=== PATIENT | male | born 1965 | race Caucasian/White ===

== ENCOUNTER → 2020-07-26 16:32 | Outpatient (CLI) | payer OTHER, SELFPAY ==
[2017-10-23 06:45] VITALS: BMI 39.8
[2020-07-26 18:43] LABS: Hemoglobin A1c 8.2 % (3.8-5.6)
[2020-07-26 19:00] LABS: Anion Gap 4 (5-15); BUN 9 mg/dL (7-18); BUN/Creat Ratio 10.7 RATIO (10-20); Calcium,Total 9.7 mg/dL (8.5-10.1); Chloride 103 mmol/L (98-107); Cholesterol 157 mg/dL (200); Creatinine, Serum 0.84 mg/dL (0.70-1.30); EST Glomerular Filtration Rate 100 mL/min (>60); Est Glom Filt Rate - Afr Amer 121 mL/min (>60); Glucose 119 mg/dL (74-106); High Density Lipoprotein 37 mg/dL; Potassium 3.9 mmol/L (3.5-5.1); Sodium Level 136 mmol/L (136-145); Triglycerides 75 mg/dL; Very Low Density Lipoprotein 15 mg/dL (5-40)
== END ==
PROVIDERS: PCP Family Medicine; Referring Provider Family Medicine; Visit Provider Family Medicine
DX: I10 Essential (primary) hypertension (principal); E11.9 Type 2 diabetes mellitus without complications
CPT/HCPCS: 36415; 80048; 80061; 83036

== ENCOUNTER → 2020-12-26 11:46 | Outpatient (CLI) | payer OTHER, SELFPAY ==
[2017-10-23 06:45] VITALS: BMI 39.8
[2020-12-26 15:38] LABS: International Normalized Ratio 1.1; Prothrombin Time (Protime)PT. 13.7 SECONDS (11.7-14.9)
[2020-12-26 16:00] LABS: Anion Gap 7 (5-15); BUN 13 mg/dL (7-18); BUN/Creat Ratio 17.1 RATIO (10-20); Calcium,Total 8.8 mg/dL (8.5-10.1); Chloride 103 mmol/L (98-107); Cholesterol 136 mg/dL (200); Creatinine, Serum 0.76 mg/dL (0.70-1.30); EST Glomerular Filtration Rate 113 mL/min (>60); Est Glom Filt Rate - Afr Amer 137 mL/min (>60); Glucose 111 mg/dL (74-106); High Density Lipoprotein 34 mg/dL; Sodium Level 139 mmol/L (136-145); Triglycerides 89 mg/dL; Very Low Density Lipoprotein 18 mg/dL (5-40)
[2020-12-26 16:41] LABS: Hemoglobin A1c 5.7 % (3.8-5.6)
== END ==
PROVIDERS: PCP Family Medicine; Visit Provider Family Medicine
DX: T14.8XXA Other injury of unspecified body region, initial encounter (principal)
CPT/HCPCS: 36415; 80048; 80061; 83036; 85610

== ENCOUNTER → 2021-01-11 10:43 | Outpatient (CLI) | payer OTHER, SELFPAY ==
[2017-10-23 06:45] VITALS: BMI 39.8
[2021-01-11 12:13] LABS: Absolute Lymphocyte Count 2.05 X10^3/uL (0.83-4.51); Absolute Neutrophil Count 5.1 X10^3/uL (2.0-7.7); Basophil# 0.06 X10^3/uL; Basophil% 0.7 % (0-1); Eosinophil# 0.26 X10^3/uL; Eosinophils% 3.2 % (0-5); Hematocrit 51.1 % (40-54); Hemoglobin 17.6 g/dL (13.0-16.5); Lymphocyte # 2.05 X10^3/ul (0.83-4.51); Lymphocyte % 25.5 % (19-41); Mean Corp Hgb Conc 34.4 g/dL (32-36); Mean Corpuscular Hgb 31.2 pg (27.0-32.0); Mean Corpuscular Volume 90.4 fL (80-94); Mean Platelet Vol. 10.3 fl (6.2-12.0); Monocyte# 0.52 X10^3/uL; Monocyte% 6.5 % (0-10); NRBC Flagged by Analyzer 0 % (0-5); Neutrophil # 5.12 X10^3/uL (2.7-7.7); Neutrophil % 63.9 % (47-70); Platelet Count 224 K/mm3 (150-450); RBC Distribution Width CV 12.3 % (11.6-14.6); RBC Distribution Width SD 40.4 fl (35.1-43.9); RET-HE 36.8 pg (30-35); Red Blood Count 5.65 M/mm3 (4.6-6.2); Reticulocyte Count 1.33 % (0.5-1.5)
== END ==
PROVIDERS: PCP Family Medicine; Referring Provider Family Medicine; Visit Provider Family Medicine
DX: T14.8XXA Other injury of unspecified body region, initial encounter (principal)
CPT/HCPCS: 85025; 85045

== ENCOUNTER → 2021-01-18 16:51 | Outpatient (CLI) | payer OTHER, SELFPAY ==
[2017-10-23 06:45] VITALS: BMI 39.8
[2021-01-18 18:46] LABS: Ferritin 205 ng/mL (26-388)
== END ==
PROVIDERS: PCP Family Medicine; Visit Provider Family Medicine
DX: R71.8 Other abnormality of red blood cells (principal)
CPT/HCPCS: 36415; 82728

== ENCOUNTER → 2021-04-11 09:00 | Outpatient (CLI) | payer OTHER, SELFPAY | PROVIDERS: PCP Family Medicine; Visit Provider Family Medicine | DX: J06.9 Acute upper respiratory infection, unspecified (principal) | CPT/HCPCS: 87635; U0005; U0003 ==

== ENCOUNTER 2021-04-17 14:23 | Outpatient (CLI) | payer OTHER, SELFPAY ==
[2021-04-17] MEDS: 0.9% Saline Lock 10 ML Syringe IV (14:49)
[2021-04-17 14:51] VITALS: BP 150/87; PULSE 80; RESP 16; TEMP 36.6; O2SAT 100; BMI 34.0
[2021-04-17 15:26] VITALS: BP 135/74; PULSE 74; RESP 16; TEMP 36.9; O2SAT 98
[2021-04-17 16:15] VITALS: BP 141/75; PULSE 80; RESP 16; TEMP 36.7; O2SAT 99
== END 2021-04-17 16:26 | disposition home or self-care (01) ==
LOC: MS3OUT 14:23 → MS3 14:24
PROVIDERS: PCP Family Medicine; Referring Provider Nurse Practitioner Adult Health; Visit Provider Nurse Practitioner Adult Health
DX: Z23 Encounter for immunization (principal); U07.1 COVID-19
CPT/HCPCS: J7050; M0243; A4216; Q0244

== ENCOUNTER → 2021-06-05 10:42 | Outpatient (CLI) | payer OTHER, SELFPAY ==
[2021-06-05 13:40] LABS: Bacteria 0 SEEN /hpf (None Seen); Mucous, Urine 0 SEEN /hpf (<or=2+); Red Blood Cells-Urine 0 SEEN /hpf (0-5); Squamous Epithelial Cells - UA 0 SEEN /hpf (0-5); White Blood Cells 0 SEEN /hpf (0-5)
[2021-06-05 15:06] LABS: Color, Urine Yellow (Yellow); Glucose, Dipstick Normal (Normal); Ketone-Dipstick Negative (Negative); Leukocyte Esterase-Dipstick Negative /ul (Negative); Nitrite-Dipstick Negative (Negative); Occult Blood-Urine Negative /ul (Negative); Protein-Dipstick Negative (Negative); Specific Gravity, Urine 1.015 (1.002-1.030); Urine Bilirubin Dipstick Negative (Negative); Urine Clarity Clear (Clear); Urine Urobilinogen Normal (Normal); Urine pH 6.5 (5.0 - 8.0)
[2021-06-05 15:29] LABS: Hemoglobin A1c 5.9 % (3.8-5.6)
[2021-06-05 15:34] LABS: Anion Gap 4 (5-15); BUN 13 mg/dL (7-18); BUN/Creat Ratio 14.9 RATIO (10-20); Chloride 104 mmol/L (98-107); Creatinine, Serum 0.88 mg/dL (0.70-1.30); EST Glomerular Filtration Rate 96 mL/min (>60); Est Glom Filt Rate - Afr Amer 116 mL/min (>60); Glucose 102 mg/dL (74-106); Potassium 3.9 mmol/L (3.5-5.1); Sodium Level 136 mmol/L (136-145)
== END ==
PROVIDERS: PCP Family Medicine; Visit Provider Family Medicine
DX: E11.9 Type 2 diabetes mellitus without complications (principal)
CPT/HCPCS: 36415; 80048; 81001; 82043; 82570; 83036

== ENCOUNTER 2021-09-08 14:23 | Outpatient (CLI) | payer OTHER, SELFPAY ==
[2021-09-08 14:33] LABS: Carboxyhemoglobin Frac (CO) 3.4 % (0.0-1.5)
== END 2021-09-08 23:59 | disposition home or self-care (01) ==
PROVIDERS: PCP Family Medicine; Visit Provider Internal Medicine Medical Oncology
DX: D75.1 Secondary polycythemia (principal)
CPT/HCPCS: 82375

== ENCOUNTER → 2023-03-05 | Outpatient (CLI) | payer OTHER, SELFPAY ==
[2023-03-05 13:14] LABS: Microalbumin,Random Urine 13.8 mg/L (NO RANGE EST.); Microalbumin:Creatinine Ratio 9.7 mg/g CRE (<30 mg/g CRE)
[2023-03-05 13:20] LABS: AST(SGOT) 26 U/L (15-37); Alanine Aminotransfer ALT/SGPT 32 U/L (16-61); Albumin, Serum 3.6 g/dL (3.2-5.0); Alkaline Phosphatase 70 U/L (45-117); Anion Gap 6 (5-15); BUN 14 mg/dL (7-18); BUN/Creat Ratio 13.9 RATIO (10-20); Bilirubin, Direct 0.12 mg/dL (0.00-0.30); Calcium,Total 8.9 mg/dL (8.5-10.1); Chloride 102 mmol/L (98-107); Cholesterol 145 mg/dL (200); Creatinine, Serum 1.01 mg/dL (0.70-1.30); EST Glomerular Filtration Rate 81 mL/min (>60); Est Glom Filt Rate - Afr Amer 98 mL/min (>60); Glucose 120 mg/dL (74-106); High Density Lipoprotein 34 mg/dL; PSA,Total - Annual Screen 6.36 ng/mL (0.00-4.00); Protein, Total 7.6 g/dL (6.4-8.2); Sodium Level 135 mmol/L (136-145); Triglycerides 107 mg/dL; Very Low Density Lipoprotein 21 mg/dL (5-40)
== END | disposition home or self-care (01) ==
PROVIDERS: PCP Family Medicine; Visit Provider Family Medicine
DX: E11.9 Type 2 diabetes mellitus without complications (principal); Z12.5 Encounter for screening for malignant neoplasm of prostate
CPT/HCPCS: 36415; 80048; 80061; 80076; 82043; 82570; 84153; G0103

== ENCOUNTER → 2023-04-29 | Outpatient (CLI) | payer OTHER, SELFPAY ==
--- NOTE | 2023-04-29 08:23 | MRI_ITS ---
STUDY: MR PELVIS WITH AND WITHOUT CONTRAST (PROSTATE) REASON FOR EXAM: Male, 57 years old. Elevated PSA TECHNIQUE: Standardized multiparametric prostate MRI with T1, T2, DWI/ADC sequences were obtained in 3 orthogonal planes, and dynamic contrast enhancement sequences. 20 ml of clariscan contrast material was administered intravenously for the contrast portion of the examination. COMPARISON: None. FINDINGS: The prostate volume measures 39.9 mm3. The contours of the prostate gland are smooth. There is mass effect on the bladder base. The transition zone is homogenous. PI-RADS DWI score 2 - Hypointense within a BPH nodule on ADC. PI-RADS T2W score 2 - A mostly encapsulated nodule OR a homogeneous circumscribed nodule without encapsulation (atypical nodule) or a homogeneous mildly hypointense area between nodules.. Contrast enhancement no early or contemporaneous enhancement; or diffuse multifocal enhancement NOT corresponding to a focal finding on T2W and/or DWI or focal ehancement responding to a lesion demonstrating features of BPH onT2WI (including features of extruded BPH in the PZ). The peripheral zone is homogenous. PI-RADS DWI score 3 - Focal (discrete and different from the background) mildy hypointense on ADC and/or focal hyperintense on high b-value DWI; may be markedly hypointense on ADC or markedly hyperintense on high b-value DWI, but not both. 9 mm restricted diffusion in the left mid posterior peripheral zone on image 17 of series 700/701. PI-RADS T2W score 3 - Noncircumscribed, rounded, mild hypointensity. Contrast enhancement no early or contemporaneous enhancement; or diffuse multifocal enhancement NOT corresponding to a focal finding on T2W and/or DWI or focal enhancement responding to a lesion demonstrating features of BPH onT2WI (including features of extruded BPH in the PZ). The seminal vesicles demonstrate normal margins and T2 signal pattern. No mass lesion or invasion depicted. The rectoprostatic angles are normal. Urinary bladder is normal without wall thickening. The vascular structures of the are normal. The visualized hollow viscus structures are normal. No bone marrow edema or mass lesion depicted. MRI/Pelvis W/WO Contrast IMPRESSION: 1. PIRADS v2.1 2019 -- 3 - Intermediate (clinically significant cancer is equivocal). Subcentimeter focal restricted diffusion (mild) of posterior left mid peripheral zone. 2. 3D reconstruction images performed and nodule/nodules been marked with the vidCoin software for anticipated biopsy. Electronically Signed: Dick Mason MD ([place]) at 10:21 EDT ,
[2023-04-29 08:56] LABS: CREATININE FINGERSTICK 1.2 mg/dL (0.70-1.30); EGFR FINGERSTICK > 60.0000 mL/min (>60)
== END | disposition home or self-care (01) ==
LOC: MRI 07:52
PROVIDERS: PCP Family Medicine; Referring Provider Urology; Visit Provider Urology
DX: R97.20 Elevated prostate specific antigen [PSA] (principal)
CPT/HCPCS: 72197; A9575

== ENCOUNTER → 2023-07-01 | Outpatient (CLI) | payer OTHER, SELFPAY ==
--- NOTE | 2023-07-01 | IMM_PTH ---
PATIENT: ADAM QUINN LOC: JV U#:[id number] AGE/SX: 57/M ROOM: RE07/01/[address]: Dr. Delbert Ty MD : 1965 BED: DIS: 07/01/2023 SPEC #: [id number] RECD: 07/03/23 14:55 STATUS: ANGELICA REQ #: [id number] DELVIN: 07/01/23 00:[address]: Delbert Ty DEPT: IMMUNOHISTOCHEMISTRY RECD BY: Manasa Boston ENTERED: 07/03/23 14:56 SP TYPE: IMMUNO OTHR DR: Dr. Shobha Lynn MD Tissues: A - PROSTATE RIGHT B - PROSTATE RIGHT C - PROSTATE RIGHT F - PROSTATE LEFT Procedures: 34BE12 (add) P40 (add) 34BE12 (initial) PHYSICIAN & INSTITUTION [place] [id number] SPECIMEN INFORMATION: Tissue Source: A - Right apex, B - Right mid, C - Right base, F - Left base Clinical Info: Elevated PSA Specimen Number: [id number] A-C & F CPT code: 26714, 99484 x7 METHODOLOGY: Deparaffinized sections of prefer/formalin-fixed tissue or PAP/DQ stained slides are incubated with monoclonal/polyclonal antibodies/oligonucleotide probes. Localization is made via biotin free immunoperoxidase method. Appropriate controls are performed and reacted as expected. Results on target cell population are indicated in the following table: RESULTS: ANTIBODY / CLONE RESULT Block A P40 (BC28) positive, focal 34BE12 (34BE12) positive, focal Block B P40 (BC28) positive 34BE12 (34BE12) positive Block C P40 (BC28) positive 34BE12 (34BE12) positive Block F P40 (BC28) negative 34BE12 (34BE12) negative These tests were developed and their performance characteristics determined by [facility]. They may not have been cleared or approved by the U.S. Food and Drug Administration. The FDA has determined that such clearance or approval is not necessary. The above immunohistochemical/dualISH markers are ordered and reviewed by the Pathologist. INTERPRETATION: A. Right prostate, apex, core biopsy: Focal atypical small acinar proliferation. B. Right prostate, mid, core biopsy: Benign prostatic tissue C. Right prostate, base, core biopsy: Benign prostatic tissue F. Left prostate, base, core biopsy: Adenocarcinoma This case was reviewed with Dr. Riggs who concurs with the above diagnosis. Am/bl 07/04/23
--- NOTE | 2023-07-01 08:00 | PROSBIL_PTH ---
PATIENT: ADAM QUINN LOC: JV U#:[id number] AGE/SX: 57/M ROOM: RE07/01/[address]: Dr. Delbert Ty MD : 1965 BED: DIS: 07/01/2023 SPEC #: [id number] RECD: 07/02/23 08:59 STATUS: ANGELICA RENito #: [id number] DELVIN: 07/01/23 08:[address]: Delbert Ty DEPT: SURGICAL PATHOLOGY RECD BY: Yanna Saha ENTERED: 07/02/23 08:59 SP TYPE: PROST BX GONZALES DR: Dr. Shobha Lynn MD Tissues: A - PROSTATE RIGHT B - PROSTATE RIGHT C - PROSTATE RIGHT D - PROSTATE LEFT E - PROSTATE LEFT F - PROSTATE LEFT Procedures: PROSTATE BX HEADER OPERATION: Prostate biopsy PRE-OP DIAGNOSIS: Elevated PSA TISSUE SUBMITTED: A - Right apex, B - Right mid, C - Right base, D - Left apex, E - Left mid, F - Left base MICROSCOPIC DIAGNOSIS A. Right prostate, apex, core biopsy: Focal atypical small acinar proliferation. See comment. B. Right prostate, mid, core biopsy: Mild chronic inflammation. See comment. C. Right prostate, base, core biopsy: Glandular atrophy. See comment. D. Left prostate, apex, core biopsy: Focal minimal acute inflammation. E. Left prostate, mid, core biopsy: Minimal chronic inflammation. F. Left prostate, base, core biopsy: Adenocarcinoma. Anais grade: 7 (3+4) Cores involved: 1 out of 2 cores Tissue involved: 20% Greatest tumor length: 3.5 millimeters See comment. AM:jarvis 07/03/2023 COMMENT A-C & F - Immunohistochemistry ([id number]) supports the above diagnosis. Case has been reviewed in consultation with Dr. Riggs who concurs with the above diagnosis. IDC:SJ MICROSCOPIC DESCRIPTION Slides are reviewed. GROSS DESCRIPTION A - Received is one container designated prostate, right apex. The specimen consists of two elongated fragments of light blackwell-white soft tissue each measuring 1.2 cm in length and 0.1 cm in diameter. The specimen is totally submitted in one cassette. B - Received is one container designated prostate, right mid. The specimen consists of two elongated fragments of light blackwell-white soft tissue measuring 0.8 and 1.0 cm in length and 0.1 cm in diameter. The specimen is totally submitted in one cassette. C - Received is one container designated prostate, right base. The specimen consists of two elongated fragments of light blackwell-white soft tissue measuring 1.4 and 1.8 cm in length and 0.1 cm in diameter. The specimen is totally submitted in one cassette. D - Received is one container designated prostate, left apex. The specimen consists of two elongated fragments of light blackwell-white soft tissue measuring 0.3 and 1.0 cm in length and 0.1 cm in diameter. The specimen is totally submitted in one cassette. E - Received is one container designated prostate, left mid. The specimen consists of two elongated fragments of light blackwell-white soft tissue measuring 0.2 and 0.7 cm in length and 0.1 cm in diameter. The specimen is totally submitted in one cassette. F - Received is one container designated prostate, left base. The specimen consists of two elongated fragments of light blackwell-white soft tissue each measuring 1.3 cm in length and 0.1 cm in diameter. The specimen is totally submitted in one cassette. / SJ:rg 07/02/2023 TC:0 CPT: 24267 x6 ADDENDUM ADDENDUM ADDENDUM ADDENDUM ADDENDUM ADDENDUM ADDENDUM ADDENDUM ADDENDUM ADDENDUM ADDENDUM ADDENDUM ADDENDUM ADDENDUM ADDENDUM ADDENDUM ADDENDUM ADDENDUM ADDENDUM ADDENDUM ADDENDUM ADDENDUM 09/02/2023 09:03 ADDENDUM 09/02/2023 09:03 ADDENDUM 09/02/2023 09:03 ADDENDUM 09/02/2023 09:03 ADDENDUM 09/02/2023 09:03 This addendum is added to incorporate an outside pathology consultation report. The case was examined at [facility] (#[id number]) and the following diagnosis was rendered. A. Right prostate, apex, core biopsy: Prostate tissue with no significant pathologic change. B. Right prostate, mid, core biopsy: Prostate tissue with no significant pathologic change. C. Right prostate, base, core biopsy: Prostate tissue with no significant pathologic change. D. Left prostate, apex, core biopsy: Prostate tissue with no significant pathologic change. E. Left prostate, mid, core biopsy: Prostate tissue with no significant pathologic change. F. Left prostate, base, core biopsy: Prostate adenocarcinoma, Anais score 3+4=7, involving 1 of 2 cores and 20% of the tissue. Karnack pattern 4 is 10% of the tumor. Please see complete above mentioned consultation report in EMR
== END | disposition home or self-care (01) ==
LOC: LABSPEC 16:01
PROVIDERS: PCP Family Medicine; Referring Provider Urology; Visit Provider Urology
DX: R97.20 Elevated prostate specific antigen [PSA] (principal)
CPT/HCPCS: 88305; 88341; 88342; G0416

== ENCOUNTER → 2023-07-12 | Outpatient (CLI) | payer OTHER, SELFPAY ==
--- NOTE | 2023-07-12 07:34 | CT_ITS ---
INDICATION: ELEVATED PSA EXAMINATION: CT ABDOMEN AND PELVIS WITH CONTRAST - CT Abdomen And Pelvis W/ Contrast Injection TECHNIQUE: Helically acquired images were obtained of the abdomen and pelvis following IV contrast. A radiation dose optimization technique was used for this scan. IV Contrast dosage and agent: 100 cc Isovue-300 Oral contrast: None. COMPARISON: None. FINDINGS: LOWER CHEST: Lung bases are clear. No cardiomegaly or pericardial effusion. LIVER: Homogeneous. No focal mass. GALLBLADDER AND BILIARY TREE: No calcified gallstones. No gallbladder distension or wall edema. No intra- or extrahepatic biliary ductal dilation. PANCREAS: No focal cystic or solid mass. SPLEEN: Normal size without focal cystic or solid mass. ADRENAL GLANDS: No nodules. KIDNEYS AND URETERS: Small left cortical cyst. No hydronephrosis. PERITONEUM: No ascites or free air. BOWEL: Normal appendix. No stomach or bowel distension. No focal inflammatory change. LYMPH NODES: No enlarged mesenteric or retroperitoneal lymph nodes. VESSELS: Aorta is non-dilated. URINARY BLADDER: Minimally distended. REPRODUCTIVE ORGANS: No pelvic masses. ABDOMINAL WALL: No discrete abdominal or pelvic wall hernia. BONES: No lytic or blastic abnormality. CT/Abdomen/Pelvis WITH Contrast IMPRESSION: No acute findings in the abdomen or pelvis. Electronically Signed: Alexis Mcdonough MD at 18:09 EST ,
--- OUTSIDE RECORDS SUMMARY | 2023-07-12 07:37 | XMS RPT_ITS | CCD ---
Author Name Unknown Address [facility] [employer] [facility] [address] [place] [address] Organization [facility] Care Team Providers Care Director Of Solutions Architecture Name Role Phone Daquan Pardo Primary Care Provider Miranda ZALDIVAR MD, HAFSA Primary Care Physician [phone] Allergies Allergy Classification Reported Allergen(s) Allergy Type Date of Onset Reaction(s) Facility Angiotensin 2 Receptor Blockers (ARB) (1 source) valsartan Drug Allergy 5 Rash [facility] Angiotensin Converting Enzyme (JORGE) Inhibitors (1 source) Lisinopril Drug Allergy 5 Cough [facility] Metoprolol (1 source) Metoprolol Drug Allergy 5 Other: See Comments [facility] Quinolones (antibiotic) (1 source) levoFLOXacin Drug Allergy 9 Intolerance [facility] Unclassified (1 source) Thiazides Drug Allergy 5 Rash [facility] Problems Active Problems Problem Classification Problem Date Documented Da te Episodic/Chronic Essential hypertension (1 source) Hypertensive disorder; Translations: [Essential (primary) hypertension] Onset: 11-24-2012 11-24-2012 Chronic Past or Other Problems Problem Classification Problem Date Documented Da te Episodic/Chronic Allergic reactions (1 source) Eczema; Translations: [Dermatitis, unspecified] Onset: 11-24-2012 11-24-2012 Episodic Other connective tissue disease (1 source) Pain in limb; Translations: [Pain in unspecified limb] Onset: 11-19-2008 11-19-2008 Episodic Superficial injury; contusion (1 source) Contusion of toe; Translations: [Contusion of unspecified lesser toe(s) without damage to nail, initial encounter] Onset: 11-19-2008 11-19-2008 Episodic Results Test Name Value Interpretation Reference Range Facil ity Encounters Encounter Date Encounter Type Care Provider Facility Start: 09-08-2021 End: 09-08-2021 Patient encounter procedure HAFSA ZALDIVAR MD [facility] Start: 03-08-2015 End: 03-08-2015 Telephone encounter Daquan Pardo [facility] Plan of Treatment Date Care Activity Detail Author Start: 03-15-2021 Influenza vaccination INFLUENZA (Sea son Ended) [facility] Start: 2020 PROSTATE CANCER SCRE ENING DISCUSSION PROSTATE CANCER SCREENING DISCUSSION [facility] Start: 12-16-2019 LIPID SCREEN LIPID SCREEN [facility] Start: 12-15-2017 DIABETES SCREEN DIABETES SCREEN [facility] Start: 2015 Screening for malign ant neoplasm of colon [facility] Start: 2015 SHINGRIX VACCINE (1 of 2) AGUILLON GRIX VACCINE (1 of 2) [facility] Start: 1984 Urine microalbumin profile DTAP,TDAP ,TD (1 - Tdap) [facility] Start: 1983 HEPATITIS C SCREENING HEPATITIS C SC REENING [facility] Start: 1983 HIV SCREENING HIV SCREENING [facility] Start: 1977 Adult depression scr eening assessment DEPRESSION SCREENING [facility] Payers Date Payer Category Payer Unknown HOSPITAL/MEDICAL GENERIC MEDICAL GENERIC [id number] 2012-2015 Indemnity 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) [facility] Start: 1965 Sex Assigned At Not on file C [facility] Sex Assigned At Male [facility] Evaluation + Plan note Note Date & Type Note Facility Evaluation + Plan note No data available for this section [facility] Hospital Discharge instructions Note Date & Type Note Facility Hospital Discharge instructions No data available for this section [facility] Summary Purpose Family History No Family History Records Found Advance Directives No Advanced Directives Records Found Additional Source Comments Source Comments (unrecognize d section and content) In the event this informatio n is protected by the Federal Confidentiality of Alcohol and Drug Abuse Patient Records regulations: The Federal rules restrict any use of the information to criminally investigate or prosecute any alcohol or drug abuse patient.[facility] (unrecognized sect ion and content) No Status Records Found INFORMATION SOURCE (unrecogn ized section and content) FOR RECORDS PERTAINING TO PATIENTS WHO ARE OR HAVE BEEN ENROLLED IN A CHEMICAL DEPENDENCY/SUBSTANCEABUSE PROGRAM, SOME INFORMATION MAY BE OMITTED. This clinical summary was aggregated from multiple sources. Caution should be exercised in using it in the provision of clinical care. This summary normalizes information from multiple sources, and as a consequence, information in this document may materially change the coding, format and clinical context of patient data. In addition, data may be omitted in some cases. CLINICAL DECISIONS SHOULD BE BASED ON THE PRIMARY CLINICAL RECORDS. [facility]. provides no warranty or guarantee of the accuracy or completeness of information in this document.
[2023-07-12 07:57] LABS: CREATININE FINGERSTICK 1.1 mg/dL (0.70-1.30); EGFR FINGERSTICK > 60.0000 mL/min (>60)
== END | disposition home or self-care (01) ==
PROVIDERS: PCP Family Medicine; Referring Provider Urology; Visit Provider Urology
DX: R97.20 Elevated prostate specific antigen [PSA] (principal); R93.49 Abnormal radiologic findings on diagnostic imaging of other urinary organs
CPT/HCPCS: 74177; Q9967

== ENCOUNTER → 2023-07-16 | Outpatient (CLI) | payer OTHER, SELFPAY ==
--- NOTE | 2023-07-16 09:05 | NM_ITS ---
CLINICAL: 67-year-old male with history of primary prostate carcinoma. WHOLE BODY 99m Tc MDP RADIONUCLIDE BONE SCINTIGRAPHY COMPARISON: CT of the abdomen-pelvis report 07/12/2023 FINDINGS: Following the intravenous administration of 26.9 mCi of 99m Tc MDP, whole body bone images reveal: 1. Increased tracer uptake is noted in the acromioclavicular compartments of both shoulders, the ninth thoracic vertebra posteriorly on the right, bilateral hip articulations involving the superior anterior acetabulum. 2. The remaining skeletal structures are scintigraphically unremarkable with normal-appearing renal images and urinary bladder activity identified. NM/Bone Scan Whole Body IMPRESSION: 1. The increase in tracer uptake noted in the bilateral shoulders, ninth thoracic vertebra and hip articulations bilaterally is commensurate with degenerative arthrosis. 2. There is no definitive scintigraphic evidence of diffuse axial skeletal metastatic disease. Electronically Signed: Octaviano Lacy DO at 8:44 EST ,
--- OUTSIDE RECORDS SUMMARY | 2023-07-16 09:24 | XMS RPT_ITS | CCD ---
Author Name Unknown Address [facility] [employer] [facility] [address] [place] [address] Organization [facility] Care Team Providers Care Fire Alarm Inspector Name Role Phone Daquan Pardo Primary Care Provider Miranda ZALDIVAR MD, HAFSA Primary Care Physician [phone] Allergies Allergy Classification Reported Allergen(s) Allergy Type Date of Onset Reaction(s) Facility Angiotensin 2 Receptor Blockers (ARB) (1 source) valsartan Drug Allergy 5 Rash [facility] Angiotensin Converting Enzyme (JORGE) Inhibitors (1 source) Lisinopril Drug Allergy 5 Cough [facility] Metoprolol (1 source) Metoprolol Drug Allergy 5 Other: See Comments [facility] Quinolones (antibiotic) (1 source) levoFLOXacin Drug Allergy 9 Intolerance [facility] Unclassified (1 source) Thiazides Drug Allergy 5 Rash [facility] Problems Active Problems Problem Classification Problem Date [...] 09-08-2021 Patient encounter procedure HAFSA ZALDIVAR MD [facility] Start: 03-08-2015 End: 03-08-2015 Telephone encounter Daquan Pardo [facility] Plan of Treatment Date Care Activity Detail Author Start: 03-15-2021 Influenza vaccination INFLUENZA (Sea son Ended) [facility] Start: 2020 PROSTATE CANCER SCRE ENING DISCUSSION PROSTATE CANCER SCREENING DISCUSSION [facility] Start: 12-16-2019 LIPID SCREEN LIPID SCREEN [facility] Start: 12-15-2017 DIABETES SCREEN DIABETES SCREEN [facility] Start: 2015 Screening for malign ant neoplasm of colon [facility] Start: 2015 SHINGRIX VACCINE (1 of 2) AGUILLON GRIX VACCINE (1 of 2) [facility] Start: 1984 Urine microalbumin profile DTAP,TDAP ,TD (1 - Tdap) [facility] Start: 1983 HEPATITIS C SCREENING HEPATITIS C SC REENING [facility] Start: 1983 HIV SCREENING HIV SCREENING [facility] Start: 1977 Adult depression scr eening assessment DEPRESSION SCREENING [facility] Payers Date Payer Category Payer Unknown HOSPITAL/MEDICAL GENERIC MEDICAL GENERIC [id number] 2012-2015 Indemnity 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 Evaluation + Plan note Note Date & Type Note Facility Evaluation + Plan note No data available for this section [facility] Hospital Discharge instructions Note Date & Type Note Facility Hospital Discharge instructions No data available for this section [facility] Summary Purpose Family History No [...] or prosecute any alcohol or drug abuse patient.[facility] (unrecognized sect ion and content) No Status [...] BE BASED ON THE PRIMARY CLINICAL RECORDS. [facility]. provides no warranty or guarantee of the accuracy or completeness of information in this document.
== END | disposition home or self-care (01) ==
LOC: NM 09:00
PROVIDERS: PCP Family Medicine; Referring Provider Urology; Visit Provider Urology
DX: C61 Malignant neoplasm of prostate (principal)
CPT/HCPCS: 78306; A9503

== ENCOUNTER → 2023-09-02 | Outpatient (CLI) | payer OTHER, SELFPAY ==
--- OUTSIDE RECORDS SUMMARY | 2023-09-02 10:57 | XMS RPT_ITS | CCD ---
Author Name Unknown Address [address] [place] [id number] Organization [facility] Care Team Providers Care Associate Professor Of Surgery Name Role Phone Daquan Pardo Primary Care Provider PETER Colmenares MD Primary Care Physician Shobha Lynn MD Primary Care Provider JOHNATHAN OVALLES Attending Unavailable SHOBHA LYNN Primary Care Unavailable DELBERT TY Referring Unavailable Allergies Allergy Classification Reported Allergen(s) Allergy Type Date of Onset Reaction(s) Facility Angiotensin 2 Receptor Blockers (ARB) (1 source) valsartan Drug Allergy 5 Rash [facility] Angiotensin Converting Enzyme (JORGE) Inhibitors (1 source) Lisinopril Drug Allergy 5 Cough [facility] Metoprolol (1 source) Metoprolol Drug Allergy 5 Other: See Comments [facility] Quinolones (antibiotic) (1 source) levoFLOXacin Drug Allergy 9 Intolerance [facility] Unclassified (1 source) Thiazides Drug Allergy 5 Rash [facility] (1 source) levoFLOXacin Drug Allergy 9 Arthralgia, Pain [facility] (1 source) Lisinopril Propensity to adverse reactions to drug [address] [facility] (1 source) Metoprolol Drug Allergy [address] [facility] (1 source) Valsartan Propensity to adverse reactions to drug [address] [facility] (1 source) Thiazide-Type Diuretics Propensity to adverse reactions to drug 5 [facility] Medications Current Medications Medication Drug Class(es) Dates Sig (Normalized) Sig (Original) aspirin 81 mg chewable tablet (1 source) Platelet Aggregation Inhibitor, Nonsteroidal Anti-inflammatory Drug aspirin 81 MG Chew Tab chewable tablet Chew 1 tablet daily. 2 tablets in the AM 2 tablets in the PM Active cholecalciferol 0.05 mg oral capsule (1 source) Vitamin D take 1 capsule by mouth once daily in the evening, then take 2 capsules by mouth in the morning cholecalciferol 50 MCG (2000 UT) capsule Take 1 capsule by mouth daily. 2 capsules in the AM 2 capsules in the PM Active loratadine 10 mg oral tablet (1 source) take 1 tablet by mouth once daily Loratadine 10 MG tablet Take 1 tablet by mouth daily. Active losartan potassium 50 mg oral tablet (1 source) Angiotensin 2 Receptor Telma Start: 08-12-2023 take 1 tablet by mouth once daily Losartan 50 MG tablet Take 1 tablet by mouth daily. 08/12/2023 Active metFORMIN hydrochloride 500 mg oral tablet (1 source) Biguanide Start: 08-12-2023 take 1 tablet by mouth once daily metFORMIN 500 MG tablet Take 1 tablet by mouth daily. 08/12/2023 Active zinc gluconate 50 mg oral tablet (1 source) take 1 tablet by mouth once daily Zinc 50 MG tablet Take 1 tablet by mouth daily. Active Problems Active Problems Problem Classification Problem Date Documented Da te Episodic/Chronic Cancer of prostate (3 sources) Malignant tumor of prostate; Translations: [Malignant neoplasm of prostate] Onset: 08-28-2023 08-28-2023 Chronic Essential hypertension (1 source) Hypertensive disorder; Translations: [Essential (primary) hypertension] Onset: 11-24-2012 11-24-2012 Chronic Other nutritional; endocrine; and metabolic disorders (1 source) Obese class I; Translations: [Obesity, unspecified] Onset: 08-28-2023 08-28-2023 Chronic Past or Other Problems Problem Classification Problem Date Documented Da te Episodic/Chronic Allergic reactions (1 source) Eczema; Translations: [Dermatitis, unspecified] Onset: 11-24-2012 11-24-2012 Episodic Mood disorders (1 source) Mood disorders Onset: 08-28-2023 08-28-2023 Other connective tissue disease (1 source) Pain in limb; Translations: [Pain in unspecified limb] Onset: 11-19-2008 11-19-2008 Episodic Superficial injury; contusion (1 source) Contusion of toe; Translations: [Contusion of unspecified lesser toe(s) without damage to nail, initial encounter] Onset: 11-19-2008 11-19-2008 Episodic Results Test Name Value Interpretation Reference Range Facil ity Vital Signs Date Time Vital Sign Value Performing Clinician Joe crystal 08-28-2023 15:02-0500 Body height 174 cm Johnathan Ovalles MD Work Phone: [facility] 08-28-2023 15:02-0500 Body mass index (BMI) [Ratio] 34.93 kg/m2 Johnathan Ovalles MD Work Phone: [facility] 08-28-2023 15:02-0500 Body temperature 97.59 [degF] Johnathan Ovalles MD Work Phone: [facility] 08-28-2023 15:02-0500 Body weight 105.73 kg Johnathan Ovalles MD Work Phone: [facility] 08-28-2023 15:02-0500 Diastolic blood pressure 78 mm[Hg] Johnathan Ovalles MD Work Phone: [facility] 08-28-2023 15:02-0500 Heart rate 75 /min Johnathan Ovalles MD Work Phone: [facility] 08-28-2023 15:02-0500 Respiratory rate 18 /min Johnathan Ovalles MD Work Phone: [facility] 08-28-2023 15:02-0500 SaO2% (BldA) [Mass fraction] 98 % Johnathan Ovalles MD Work Phone: [facility] 08-28-2023 15:02-0500 Systolic blood pressure 147 mm[Hg] Johnathan Ovalles MD Work Phone: [facility] Encounters Encounter Date Encounter Type Care Provider Facility Start: 08-28-2023 ambulatory JOHNATHAN OVALLES Facility :[facility] Start: 08-28-2023 End: 08-30-2023 Office outpatient new 60 minutes Johnathan Ovalles MD Work Phone: Division [facility] Urological Surgery [facility] Procedures Date Procedure Procedure Detail Performing Clinician Start: 08-28-2023 Urnls dip stick/tabl et rgnt auto w/o microscopy Johnathan Ovalles MD Work Phone: Plan of Treatment Date Care Activity Detail Author Start: 11-26-2023 End: 08-28-2024 PSA - DIAGNOSTIC/TUMOR MARKER PSA - DIAGNOSTIC/TUMOR MARKER Lab STAT Prostate cancer Expected: 11/26/2023 (Approximate), Expires: 08/28/[address] [facility] Immunizations Immunization Date Immunization Notes Care Provider Fa cility 06-05-2021 influenza virus vaccine, unspecified formulation Johnathan Ovalles MD Work Phone: [facility] Payers Date Payer Category Payer Private Health Insurance [employer] [id number] 2023-Present [address] [place] [address] [id number] 2023 Private Health Insurance [id number] 2012 Unknown [facility]OSP[facility] GENERIC MEDICAL GENERIC [id number] 2012-2015 Indemnity [id number] 1965 Unknown [id number] Social History Date Type Detail Facility Start: 07-30-2014 End: 08-28-2023 Tobacco smoking status NHIS Never smoker [facility] Start: 07-30-2014 Alcohol intake Current non-dr construction 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 Start: 08-28-2023 Alcoholic beverage intake Current drinker of alcohol (finding) [facility] Start: 08-28-2023 History of Social function [facility] Start: 08-28-2023 Tobacco use panel [facility] Adolescent depressio n screening assessment [address] [facility] Start: 08-28-2023 Alcohol Comment Social [facility] History of Present illness Narrative 08-28-2023 Elinor Oliveira, FLOR-GOVERNOR ASSEMBLER HYDRAULIC - 08/28/2023 3:00 PM Reji Ramirez RN - 08/28/2023 3:00 PM Selena Ovalles MD - 08/28/2023 3:00 PM EST Note Date & Type Note Facility 08-28-2023 History of Present illness Narrative Images from the original note were not included. HPI 58 y.o. male presents for second opinion evaluation of prostate cancer. He initially presented to Dr. Chava Ty with an elevated PSA to 6.36 on 03/05/2023. MRI prostate 04/29/2023 showed a left posterior mid peripheral zone PIRADS 3 lesion. He underwent prostate biopsy 07/01/2023 and pathology revealed [employer] 3+4=7 in 1 of 12 cores comprising 20% of the core. CT AP w 07/12/2023: GEOFF. Bone scan 07/16/2023: no mets. Options discussed were , surgery & RT. [facility] path review 08/22/2023: [employer] 3+4=7 in 1 of 12 cores comprising 20% of the core. He saw local radiation oncologist, Dr. Kerwin Conner ([facility]). He has not seen a medical oncologist. Denies bothersome LUTS, GH, UTI, dysuria. No pain or unintentional weight loss. Energy and appetite are good. Bowels are moving, no concerns. Erections: High confidence in erections. No concerns. Past history is negative for UTI, stones or other renal diseases. Family history of prostate cancer: no, maybe a paternal cousin but he's not sure. 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 -Prior Abdominal Surgery: no -Anticoagulation: no -History of Bleeding with Prior Surgery: no -History of Glaucoma: no IPSS: International Prostate Symptom Score (I-PSS) Incomplete emptying: Not at all Frequency: Less than half the time Intermittency: Not at all Urgency: Less than half the time Weak stream: Not at all Straining: Not at all Nocturia: 1 time Total AUA score: 5 Quality of life due to urinary symptoms Rate current urinary condition: Mostly satisfied, SHASHA: SHASHA Survey Confidence to get and keep an erection?: High Sexual stimulation - how often erections hard enough for penetration?: Most times (much more than half the time) How often maintain erection after penetration?: Most times (much more than half the time) Difficulty to maintain erection to intercourse completion?: Slightly difficult Potlatch satisfactory for you?: Most times (much more than half the time) Total SHASHA score: 20 Past Medical History: He has a past medical history of Essential hypertension, benign, History of seasonal allergies, Pre-diabetes, and Prostate cancer. Past Surgical History: He has a past surgical history that includes bx prostate needle or punch (07/01/2023) and tonsillectomy. Medications: He has a current medication list which includes the following prescription(s): aspirin, cholecalciferol, loratadine, losartan, metformin, and zinc. Allergies: He is allergic to levofloxacin, lisinopril, metoprolol, thiazide-type diuretics, and valsartan. Social History He reports that he has never smoked. He has never used smokeless tobacco. He reports current alcohol use. He reports that he does not currently use drugs. Family History: He family history includes Colon Cancer in his paternal grandfather and paternal uncle; Heart Disease - Other in his father and mother; SLE in his mother. Review of Systems Constitutional: Negative for fever, chills, weight loss, weight gain and malaise/fatigue. Cardiovascular: Negative for chest pain. Respiratory: Negative for shortness of breath. Gastrointestinal: Negative for nausea, abdominal pain, diarrhea, constipation. Genitourinary: see HPI Musculoskeletal: Negative for back pain and joint pain. Physical Exam BP 147/78 Pulse 75 Temp 97.6 F (36.4 C) Resp 18 Ht 1.74 m (5' 8.5 ) Wt 105.7 kg (233 lb 1.6 oz) SpO2 98% BMI 34.93 kg/m Smoking Status Never Constitutional: NAD, WDWN. Pulmonary/Chest: Respirations are even and non-labored bilaterally. Abdominal: Soft. No distension, tenderness, masses or guarding. Diagnostic Tests Lab Results Component Value Date LEUKOCESTUR Negative 08/28/2023 NITRITE Negative 08/28/2023 PROTEIN Negative 08/28/2023 UPH 7.0 08/28/2023 BLOOD Negative 08/28/2023 SPECIFICGRAV 1.025 08/28/2023 KETONES Negative 08/28/2023 GLUCOSE Negative 08/28/2023 No results found for: CREATSERUM No results found for: PSA PSA @ [facility] 6.36 03/05/2023 Post Void Residual 12ml 08/28/2023 Radiographic Studies: Bone Scan (07/16/2023) CT AP w (07/12/2023) MRI Prostate (04/29/2023): Prostate volume = 39.9cc. PSA density = 0.16 ng/mL/cc (@ PSA 6.36). Prostate Biopsy Pathology: Outside Slides: [id number] (07/01/23) Right prostate, apex, core biopsy: Prostate tissue with no significant pathologic change Right prostate, mid, core biopsy: Prostate tissue with no significant pathologic change Right prostate, base, core biopsy: Prostate tissue with no significant pathologic change Left prostate, apex, core biopsy: Prostate tissue with no significant pathologic change Left prostate, mid, core biopsy: Prostate tissue with no significant pathologic change Left prostate, base, core biopsy: Prostatic adenocarcinoma, Anais score 3+4=7, involving 1 of 2 cores and 20% of the tissue [employer] pattern 4 is 10% of the tumor 07/01/2023 (PSA 6.36): Anais 3+4=7 in 1 of 12 cores comprising 20% of the core. Assessment 58 y.o. male who presented with an elevated PSA to 6.36 on 03/05/2023. MRI prostate 04/29/2023 showed a left posterior mid peripheral zone PIRADS 3 lesion. He underwent prostate biopsy 07/01/2023 and pathology revealed [employer] 3+4=7 in 1 of 12 cores comprising 20% of the core. CT AP w 07/12/2023: GEOFF. Bone scan 07/16/2023: no mets. [facility] review 08/22/2023: [employer] 3+4=7 in 1 of 12 cores comprising 20% of the core. He has favorable intermediate risk clinically localized prostate cancer. He was counseled extensively on the nature of his cancer and the treatment options were discussed including active surveillance, surgical, and radiation-based options. He was given detailed information regarding the short term and skilled nursing advantages and disadvantages of each treatment option. Including detailed discussion of the urinary, sexual and bowel complications. We discussed robotic surgery in particular with discussion of the expected perioperative course, risks, complications, and potential side effects. We also discussed the concept of nerve sparing and the balance between cancer control and erectile function. All of his questions were answered. He is not interested in radiation. We discussed the possibility of surveillance further and that we would typically get Decipher genomic testing in this situation to ensure further risk stratification would support this. He may be leaning slightly towards surgery, but unsure on when he would like to proceed. 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 Ultimately we discussed the present decision between Decipher genomic testing (to confirm candidacy for surveillance) and proceeding directly with Robot-Assisted Radical Prostatectomy. Plan -Patient to call. Total time (including chart review, documentation and discussion with patient) to complete visit: >60 minutes The patient has seen his local urologist and radiation oncologist. He plans to follow up with his PCP, Dr. Lynn, next week when he'll make a decision. Per the patient he's holding his cards in regards to a decision. 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 Unsure of family history of malignancy -- possibly has a cousin with prostate cancer, but he's not certain. Of note, he does have a large extended family. He reports that he has a blood thickening problem that he saw Dr. Peter Ku (financial accounting manager) for -- unsure of what the diagnosis was, and states that he was unhappy with Dr. Ku. He thinks that it had something to do with CO levels in his blood. Patient reports increased fatigue, but does report that a lot has been going on -- both with work, travel, and his health. Denies loss of appetite. Patient is pre-diabetic which he takes Metformin for. Nocturia 1x/night -- sometimes will have trouble falling back asleep. Iris Ramirez RN I saw and evaluated the patient with ARMANDO Dixon. I provided a substantive portion of the care for this patient. I personally performed all aspects of the medical decision making for this encounter. I have reviewed and verified this documentation and it accurately reflects our care. documented in this encounter [facility] Clinical Note 08-22-2023 Note Date & Type Note Facility 08-22-2023 Note Request received for second opinion consultation by ARMANDO Nobles. Prostate cancer. Preoperative Diagnosis: Elevated PSA. [facility] Evaluation + Plan note Note Date & Type Note Facility Evaluation + Plan note No data available for this section [facility] Evaluation note Note Date & Type Note Facility [facility] encounter [facility] Discharge instructions Note Date & Type Note Facility Hospital Discharge instructions No data available for this section [facility] Summary Purpose Family History No Family History Records FoundNo Family History Records Found Advance Directives No Advanced Directives Records FoundNo Advanced Directives Records Found Additional Source Comments Source Comments (unrecognize d section and content) In the event this informatio n is protected by the Federal Confidentiality of Alcohol and Drug Abuse Patient Records regulations: The Federal rules restrict any use of the information to criminally investigate or prosecute any alcohol or drug abuse patient.[facility] (unrecognized sect ion and content) No Status Records FoundNo Status Records Found INFORMATION SOURCE (unrecogn ized section and content) DATE CREATED AUTHOR AUTHOR'S ORGANMIN ATION 09/02/2023 [facility] Reason for Visit (unrecogniz ed section and content) Specialty Diagnoses / Procedures Referred By Contac t Referred To Contact Urology Diagnoses prostate cx/referral from chava ty/recs in fax Procedures NEW SURG Delbert Ty MD [address] [place] [address] Johnathan Ovalles MD [address] [place] [address] Referral ID Status Reason Start Date Expiration Date V isits Requested Visits Authorized [id number] New Request 08/14/2023 09/07/2024 1 1 Care Teams (unrecognized sec tion and content) FOR RECORDS PERTAINING TO PATIENTS [...] BE BASED ON THE PRIMARY CLINICAL RECORDS. [facility]. provides no warranty or guarantee of the accuracy or completeness of information in this document.
[2023-09-02 12:37] LABS: PSA,Total- Diagnostic 4.33 ng/mL (0.0-4.0)
== END | disposition home or self-care (01) ==
PROVIDERS: PCP Family Medicine; Referring Provider Family Medicine; Visit Provider Family Medicine
DX: C61 Malignant neoplasm of prostate (principal)
CPT/HCPCS: 36415; 84153

== ENCOUNTER 2023-10-02 07:51 | Observation (INO) | payer OTHER, SELFPAY ==
[2023-09-27 08:39] LABS: Hematocrit 49.7 % (40-54); Hemoglobin 17.3 g/dL (13.0-16.5); Mean Corp Hgb Conc 34.8 g/dL (32-36); Mean Corpuscular Hgb 30.7 pg (27.0-32.0); Mean Corpuscular Volume 88.3 fL (80-94); Mean Platelet Vol. 9.6 fl (6.2-12.0); Platelet Count 216 K/mm3 (150-450); RBC Distribution Width CV 12.3 % (11.6-14.6); Red Blood Count 5.63 M/mm3 (4.6-6.2)
[2023-09-27 08:58] LABS: Anion Gap 5 (5-15); BUN 16 mg/dL (7-18); BUN/Creat Ratio 18.3 RATIO (10-20); Calcium,Total 8.9 mg/dL (8.5-10.1); Chloride 107 mmol/L (98-107); Creatinine, Serum 0.88 mg/dL (0.70-1.30); EST Glomerular Filtration Rate 95 mL/min (>60); Est Glom Filt Rate - Afr Amer 115 mL/min (>60); Glucose 148 mg/dL (74-106); Potassium 3.7 mmol/L (3.5-5.1); Sodium Level 139 mmol/L (136-145)
[2023-09-27 09:17] LABS: Hemoglobin A1c 6.4 % (3.8-5.6)
[2023-10-02] VITALS (11 sets, daily range): BP systolic 104–155; BP diastolic 44–94; PULSE 71–108; RESP 16–18; TEMP 36–36.8; O2SAT 96–100; BMI 32.2
[2023-10-02] MEDS: Lactated Ringers 1,000 ML 15 ML IV (06:49)
[2023-10-02 07:28] LABS: Bedside Glucose 105 mg/dL (74-106)
--- NOTE | 2023-10-02 07:30 | PROST_PTH ---
PATIENT: ADAM QUINN LOC: MS3 U#:[id number] AGE/SX: 58/M ROOM: [facility] RE10/02/[address]: Dr. Delbert Ty MD : 1965 BED: 1 DIS: 10/04/2023 SPEC #: [id number] RECD: 10/02/23 12:07 STATUS: ANGELICA DAVE #: [id number] DELVIN: 10/02/23 07:[address]: Delbert Ty DEPT: SURGICAL PATHOLOGY RECD BY: Yanna Saha ENTERED: 10/02/23 13:17 SP TYPE: PROSTATE OTHR DR: Dr. Shobha Lynn MD Tissues: A - Lymph node of pelvis, NOS B - Lymph node of pelvis, NOS C - Soft tissues of pelvis, NOS D - Prostate, NOS Procedures: Surgery Specimen Level IV Surgery Specimen Level V Surgery Specimen Level HEADER OPERATION: Laparoscopic robotic radical prostatectomy PRE-OP DIAGNOSIS: Malignant neoplasm of prostate, elevated PSA TISSUE SUBMITTED: A- Right pelvic lymph node, B- Left pelvic lymph node, C- Fat over prostate, D- Prostate MICROSCOPIC DIAGNOSIS A. Right pelvic lymph node, regional lymphadenectomy; Two out of two lymph nodes negative for carcinoma. B. Left pelvic lymph node, regional lymphadenectomy; Two out of two lymph nodes negative for carcinoma. C. Fat over prostate, biopsy; No evidence of carcinoma. Mature adipose tissue. D. Prostate, radical prostatectomy; Adenocarcinoma. See synoptic report below. AM/mr 10/04/2023 COMMENT PROSTATE CANCER (RADICAL) SUMMARY: Procedure: Radical Prostatectomy Prostate Size: 4.3 x 3.6 x 2.0 cm Weight: 53 gm Histologic Type: Adenocarcinoma Histologic Grade: 7 (3+4) Percent of Pattern 4: 10% Percent of Pattern 5: 0% Intraductal Carcinoma: Not identified Tumor Quantitation: 1.2 x 1.0 x 1.0 cm Extraprostatic Extension: Not identified Urinary Bladder Neck Invasion: Not identified Seminal Vesicle Invasion: Not identified Lymphvascular Invasion: Not identified Perineural Invasion: Focally present Margins: Free of carcinoma Regional Lymph Nodes: See specimens A and B Number of lymph nodes involved by carcinoma: 0 Total number of lymph nodes examined: 4 Treatment Effect: Unknown Additional Pathologic Findings: 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 Case has been reviewed in consultation with Dr. Riggs who concurs with the above diagnosis. IDC:[id number] MICROSCOPIC DESCRIPTION Slides are reviewed. GROSS DESCRIPTION A. Received in fixative is one container labeled with the patient's name and designated Right pelvic lymph node. The specimen consists of multiple irregular fragments of yellow-fatty tissue that in aggregate measure 4.5 x 2.2 x 0.8 cm. The sections reveals two blackwell nodules measuring in size 1.4 to 1.7cm. The nodules are bisected and totally submitted in two cassettes. (one lymph node in each cassette). B. Received in fixative is one container labeled with the patient's name and designated Left pelvic lymph node. The specimen consists of one single irregular fragment of yellow fatty tissue that measures 2.5x 2.5 x 1.0 cm. Dissection reveals two blackwell nodules measuring In size of 1.2to 1.3cm. The larger nodule is inked, bisected and totally submitted in one cassette along with the smaller nodule. C. Received in fixative is one container labeled with the patient's name and designated Fat over prostate. The specimen consists of an irregular fragment yellow-blackwell tissue measuring 4.0x4.0x0.2cm. The specimen is totally submitted in one cassette. D. Received in fixative is one container labeled with the patient's name and designated prostate. The specimen consists of a prostate with attached several seminal vesicles weighing 53gm. Gland measures 2.0cm transversely 3.6cm, anterior posteriorly and 4.3cm cranial-caudally. No mass lesions are palpated. The specimen is differentially inked as follows. Right half of prostate and seminal vesicles- blue, Left half- green, anterior surface- red, and entire posterior surface of the specimen- black. The gland is serially sectioned from apex of gland to base of approximately 3mm intervals. Serial sections do not reveal distinct mass lesions. Printing Film Stripper sections are submitted in 17 cassettes as follows. 1- Distal urethral margin, (shaved), 2- proximal urethral margin (bladder shave), 3-seminal vesicles, 4- Most distal portion of prostate gland, 5-7- apex, 8-13- Mid portion of prostate, 14-17- Basal of prostate AM/mr 10/03/2023 TC:0 CPT: 20884z6, 52647w1
[2023-10-02] MEDS: Cefazolin 2 GM in 0.9% Normal Saline (100mL Bag) 100 ML IV ×2 (07:33→11:28)
[2023-10-02] MEDS: Bupivacaine Mpf 0.5% 30 ML VIAL (11:20)
--- NOTE | 2023-10-02 11:31 | DCINST_ITS ---
Discharge Instructions Diet Discharge Diet: No restrictions and Light diet - advance as tolerated Activity Discharge Activity: May Not Drive Lifting Restrictions: No lifting greater than 10 pounds for 6 weeks Dressing / Incision Call your doctor if you observe: Fever of 101 or Higher Catheter: Barr[place] to leg bag and [place] to large bag Drain: [place] Follow Up Care Please Follow Up With: Delbert Ty MD When: 2 weeks Test Results: Test results from this visit will be discussed in further detail at your follow- up appointment, if applicable. Discharge Plan Admission Primary Reason for Your Visit: Radical prostatectomy Attending Provider: Delbert Ty Primary Care Provider: Shobha Lynn Discharge Orders/Prescriptions Prescriptions: New oxycodone 5 mg tablet 5 mg PO Q6H PRN (Reason: pain) 7 Days Qty: 14 0RF docusate sodium [Colace] 100 mg capsule 100 mg PO BID Qty: 20 0RF cephalexin 500 mg capsule 500 mg PO TID Qty: 21 0RF Continued cholecalciferol (vitamin D3) 1,000 unit capsule 4,000 unit PO BID loratadine 10 mg tablet 10 mg PO QDAY aspirin 81 mg tablet,chewable 162 mg PO BID metformin 500 mg tablet 500 mg PO QHS losartan 50 mg tablet 50 mg PO DAILY zinc gluconate 30 mg tablet 50 mg PO DAILY Referrals / Follow Up: Shobha Lynn MD [Primary Care Provider] - Delbert Ty MD [Med Staff - Active Staff] - Disposition Disposition (needs filled in before D/C Order can be placed): Home, Self Care
--- NOTE | 2023-10-02 11:31 | PCM.HP.STD ---
[facility] - General General Date of Service: 10/02/23 Chief Complaint: Prostate cancer [facility] Narrative ADAM QUINN, is a 58 M who presents for a radical prostatectomy for prostate cancer [facility] Medical History (Updated 09/18/23 @ 14:11 by Latrice Blanco) Abnormal pathology report from prostate needle biopsy Alcohol use Arthritis Bronchitis Cancer Carbon monoxide poisoning Diabetes mellitus Dietary restriction Elevated PSA Head injury Hypertension Leg cramps Loss of consciousness Loss of hearing Migraine headache Non-smoker Pulmonary embolism Wears glasses Home Medications aspirin 81 mg chewable tablet 162 mg PO BID 10/23/17 [History Last Taken 09/22/23] cholecalciferol (vitamin D3) 25 mcg (1,000 unit) capsule 4,000 unit PO BID 10/23/17 [History Last Taken Unknown] loratadine 10 mg tablet 10 mg PO QDAY 10/23/17 [History Last Taken Unknown] losartan 50 mg tablet 50 mg PO DAILY 01/24/21 [History Last Taken 10/02/23] metformin 500 mg tablet 500 mg PO QHS 01/24/21 [History Last Taken Unknown] zinc gluconate 30 mg tablet 50 mg PO DAILY 07/29/23 [History Last Taken Unknown] cephalexin 500 mg capsule 500 mg PO TID #21 caps 10/02/23 [Rx Last Taken Unknown] docusate sodium 100 mg capsule (Colace) 100 mg PO BID #20 caps 10/02/23 [Rx Last Taken Unknown] oxycodone 5 mg tablet 5 mg PO Q6H PRN pain 7 days #14 tabs 10/02/23 [Rx Last Taken Unknown] Allergy/AdvReac Type Severity Reaction Status Date / Time Quinolones Allergy Severe Rash Verified 10/02/23 06:25 Sulfa (Sulfonamide Allergy Severe Rash Verified 10/02/23 06:25 Antibiotics) levofloxacin [From Levaquin] Allergy Unknown Verified 10/02/23 06:25 lisinopril AdvReac COUGH Verified 10/02/23 06:25 Family History Unknown Diabetes Unknown Prostate cancer Surgical History (Updated 09/18/23 @ 14:11 by Latrice Blanco) History of cystoscopy History of tonsillectomy Hx of colonoscopy Social History household members: spouse Smoking Status: Never smoker alcohol intake: current alcohol intake frequency: holidays/special occasions only Vital Signs Vital Signs Vital Signs: 10/02/23 06:31 10/02/23 06:31 Temperature 98.3 F Temperature Source Temporal Pulse Rate 83 Respiratory Rate 16 Respiratory Pattern Normal Blood Pressure 152/75 H Blood Pressure Mean 100 Blood Pressure Source Monitor Blood Pressure Position Semi-Fowlers Blood Pressure Location Left Arm Pulse Ox 96 Oxygen Delivery Method Room Air Weight Weight: 99 kg Body Mass Index (BMI) 32.2 Results Lab / Micro Data 09/27/23 08:15 09/27/23 08:15 Labs: Laboratory Results - last 24 hr 10/02/23 06:40: POC Glucose 105
--- NOTE | 2023-10-02 11:32 | PCM.OPRPT ---
Report of Operation Date of Procedure: 10/02/23 Pre-Operative Diagnosis: Prostate cancer Post-Operative Diagnosis: The same Surgery/Procedure Performed:: Laparoscopic robotic assisted radical prostatectomy bilateral lymph node dissection bilateral nerve sparing using no electrocautery Description of Surgical Findings:: Patient presented to the hospital for treatment of his prostate cancer with radical prostatectomy. In the preoperative setting we discussed the options of management for his prostate cancer including active surveillance, radiation treatments, radioactive seeds, and radical robotic prostatectomy. We discussed the side effects of surgery including the potential to lose erections. We discussed the potential to have bladder control problems with stress incontinence which can be temporary or permanent. We discussed the risk of the surgery including the risk of general anesthetic, risk of bleeding, risk of infection, and risk of formation of hernia either incisional hernia or inguinal hernia. After long discussion with the patient the preoperative setting and also reviewed this in the preop area patient signed the consent form and we proceeded with a radical prostatectomy. Patient was taken back to the operating room he was identified, time out procedure was performed and he was placed supine on the table he underwent general anesthesia with intubation. The abdomen was shaved prepped and draped in usual sterile fashion as well as the penis and testicles. A 16 Bangladeshi catheter was placed into the bladder with clear return of urine. I then made an incision in the umbilicus and dissected down to the fascia advance a Veress needle into the peritoneal cavity and insufflated the peritoneal cavity with CO2 gas. I then placed a 12 mm trocar above the umbilicus. I then visualized the placement of the rest of the trochars, I placed a right arm robotic trocar, and air seal trocar, a suction port 5 mm trocar. And on the left side I placed 2 robotic arms. Once all the trochars were in placed the patient was put in steep Trendelenburg. And the robot was docked the arms were docked and then I placed the 0 degree camera through the robotic arm and also used a 30 degree camera during certain parts of the case. I used scissors in the right arm, prograsp in the third arm, and a bipolar in the second arm. Initial dissection was to free the sigmoid colon off the lateral wall this was done by meticulously dissecting off the peritoneum and the sigmoid colon off the left lateral wall. This then allowed the prograsp to retract the sigmoid colon out of the pelvis. I then went below the bladder and identified the vas deferens incised the peritoneum over the vas deferens and traced the vas deferens below the bladder to the prostate and identified the right and left vasa deferens. Below behind the vas deferens then the seminal vesicles were identified. I then dissected the seminal vesicle free using pinpoint electrocautery and then we identified the other seminal vesicle and then dissected this using pinpoint electrocautery I then elevated the vas deferens and several vesicles off the prostate and was able to sweep the Denonvilliers' fascia off the prostate posteriorly all the way up to the apex of the prostate. Working laterally I made sure I went as lateral as possible to sweep the Denonilliers' fascia off the posterior aspect of the prostate and worked my way back, I then transected the vas deferens and the left and right side the seminal vesicles were then dissected free. And then I pulled out of the pelvis. At this point the bladder was dropped creating the space of Retzius with the bladder on traction with the fourth arm. Using electrocautery I dissected in the anterior peritoneal fascia and then created the space of Retzius dissecting towards the prostate. The pelvic lymph node dissection was then performed both side. Rhe right pelvic lymph nodes the nodes that were taken on the right side extended from the right iliac artery lateral pelvic sidewall up to the junction of the artery and the lymph nodes and down to the obturator nerve and then also below the packaging machine operator nerve all the lymph nodes were removed during to remove those lymph nodes we used clips and electrocautery to control small blood vessels and also the control lymphatic. I then went to the left side and again did an extensive lymph node dissection starting of the left iliac artery extending the left iliac vein on the lateral sidewall down to the obturator nerve and the left side beyond the packaging machine operator nerve down further behind it cleaning out all the lymphatic tissue all this tissue was sent off as a specimen we use clips and electrocautery during the dissection. At the end we cleaned out all the lymphatic tissue on the right pelvic wall and all the lymphatic tissue in the left pelvic wall. The prostate was then cleaned of the fat over the prostate and the fourth arm was used to retract the bladder and place traction. I then identified the endopelvic fascia that was overlying the prostate on the right side I incised endopelvic fascia and wwept the levator muscles off the prostate all the way to the apex on the right side, I then worked my way anterior to the prostate then transected to the puboprostatic ligament and the underlying dorsal vein complex was not injured. I then went to the other side and identified the endopelvic fascia in the left side incised in a fashion the left side and swept the levator muscles off the prostate on the left side all the way up to the apex the puboprostatic ligament on the left side was then dissected and transected I then freed up the fascia overlying the dorsal vein complex. I then used the prograsp to encircled the dorsal vein complex with the prograsp and then switched over to the right and left needle certified driver examiner and suture ligated the dorsal vein complex above the prograsp. The prograsp was then placed back in the bladder and put back on traction I then identified the junction between the bladder and the prostate and dissected down between the bladder and the prostate untilI came across the catheter we then dissected posteriorly to the bladder and prostate to free the prostate and the bladder off each other and the muscles between the bladder and the prostate was then cauterized to free up the bladder. I then went on top of the prostate and identified the endopelvic fascia on top of the prostate this was incised all the way to the apex and then we swept the endopelvic fascia off the prostate laterally and then identified the plane between endopelvic fascia and the prosthetic pseudocapsule and swept the fascia laterally until reaching the course of the neurovascular bundles and then released the neurovascular bundles off the prostate laterally all the way back in a retrograde fashion back to the junction of the pedicles then the prostate was placed on traction with the fourth arm pulling the prostate laterally identified the pedicle to the prostate between the seminal vesicles and the and the neurovascular bundle and this was taken using sequential small hemolocks. After the pedicle was taken the I then dissected underneath the prostate sweeping the neurovascular bundle off the prostate we able to follow the nice smooth plane between the neurovascular bundle and the pseudocapsule all the way to the apex once this was identified we swept this up all the way up to the apex and there was perfect nerve sparing on the right side. Then went to the left side the prostate identified the endopelvic fascia over the left side of the prostate I incised the endopelvic fascia all the way to the apex and then swept this off laterally I then released the neurovascular bundles on the left side of the prostate sweeping him off the prostate laterally I then elevated the prostate up up with the prostate and traction identified the pedicle to the prostate on the left side and then the pedicles taken with sequential Hem-o-shanae clips I then was able to dissected the neurovascular bundle off the left posterior aspect the prostate this was a perfect dissection all the way up on the left side following the pseudocapsule all the way up the left side until we reached the apex of the prostate. After the both the neurovascular bundles has been swept off the posterior to the prostate I then went above and transected the dorsal vein complex there was minimal to no bleeding but then dissected down to the urethra and circumfencial dissected around the urethra I then switched the right and left arm with the needle drivers and I suture-ligated the dorsal vein complex again just to ensure that there was no bleeding from the dorsal vein complex. I then transected through the urethra with scissors and the prostate was then freed and released off the prostate bed and put an Endo Catch bag. At this point the bladder neck was reconstructed and then an anastomosis was performed between the prostate and the bladder with a 3 oh V-Loc stitch in a running fashion starting from the bladder neck at the 6 o'clock position working to the 12 o'clock position with continuous stitches to complete a perfect anastomosis between the bladder and the prostate. I then placed a new catheter into the bladder, an 18 Bangladeshi mary's igloo tip catheter flushed the bladder and there was no leakage from the anastomosis I put 10 cc in the balloon and pulled it up pulled back gently. I then ensured that there was no bleeding from the dorsal vein complex no bleeding from the neurovascular bundles FloSeal was placed as necessary once hemostasis was ensured and adequate then I placed the bladder back in position in the pelvis the prostate was exchanged to the camera port I closed the air seal port with a 10 12 Irvin Yip stitch. And the extracted the prostate through the umbilicus. The robot was undocked all the ports were removed under direct visualization then closed the extraction site with 0 Vicryl with a CT1 needle once the extraction site was closed. I then closed all the incision with subcuticular stitches with 4-0 Monocryl and then bandages were placed on the incisions catheter was flushed to make sure it was draining well there was no clots and it was crystal clear patient's anesthetic was reversed he was extubated and taken back to the PACU in stable condition all the needles and sponges and instruments were accounted for. Blood loss was minimal and the drain was a 18 Bangladeshi Glaser catheter. No other surgical drain was left. I was present during the entire case. Surgeon: Delbert Ty Type of Anesthesia: General Drains: 18 fr glaser Estimated Blood Loss (mL): 50 Admit VTE Documentation VTE Present on Admission: No VTE Mechan Device Prophylaxis: SCD's VTE Pharm Prophylaxis ordered?: No
[2023-10-02 12:32] LABS: Bedside Glucose 164 mg/dL (74-106)
[2023-10-02] MEDS: Lactated Ringers 1,000 ML 125 ML IV ×2 (15:16→23:21)
--- NOTE | 2023-10-02 16:00 | PCM.PN.BLA ---
Progress Note Postop check, 58-year-old male status post radical prostatectomy for prostate cancer, patient and surgery did well but unfortunately he was noticed to have severe weakness in both upper extremities also when he came out of the operating room there was some hahn on both his shoulders from the positioning of the patient. Nurses to position the patient prior to surgery. Was an experience team but unfortunately the patient now has significant paresthesia in both his left and right arms, the paresthesias improvement in his left arm but he still has a lot of paresthesia in his right arm he is able to both move both arms but a lot of weakness in the right arm. I will give him steroids. Will give him a Medrol dose steroids to help hopefully with time this will heal spontaneously hopefully this will be a long-term effect and the ditching machine operating engineer has been notified of the injury to have an incident review.
[2023-10-02] MEDS: 0.9% Saline Lock 10 ML Syringe IV ×2 (16:22→21:42)
[2023-10-02] MEDS: Ketorolac 15 MG/ML Vial IV ×2 (17:42→23:46)
[2023-10-02] MEDS: Docusate Sodium 100 MG Capsule 200 MG PO (21:42)
[2023-10-02] MEDS: metFORMIN HCl 500 MG Tablet PO (21:42)
[2023-10-02] MEDS: Cephalexin 500 MG Capsule PO (21:43)
[2023-10-02 22:07] LABS: Bedside Glucose 200 mg/dL (74-106)
[2023-10-03] VITALS (7 sets, daily range): BP systolic 128–154; BP diastolic 73–86; PULSE 89–97; RESP 16–18; TEMP 36.3–36.6; O2SAT 95–97
[2023-10-03] MEDS: Ketorolac 15 MG/ML Vial IV ×4 (06:10→23:37)
[2023-10-03] MEDS: Lactated Ringers 1,000 ML 125 ML IV ×2 (06:16→14:02)
[2023-10-03 06:58] LABS: Bedside Glucose 145 mg/dL (74-106)
[2023-10-03 07:35] LABS: Hematocrit 45.1 % (40-54); Hemoglobin 15.6 g/dL (13.0-16.5); Mean Corp Hgb Conc 34.6 g/dL (32-36); Mean Corpuscular Volume 89.5 fL (80-94); Platelet Count 238 K/mm3 (150-450); RBC Distribution Width CV 12.6 % (11.6-14.6); RBC Distribution Width SD 41.1 fl (35.1-43.9); Red Blood Count 5.04 M/mm3 (4.6-6.2); White Blood Count 12.7 K/mm3 (4.4-11.0)
--- NOTE | 2023-10-03 07:43 | PCM.PN.GU ---
Subjective Subjective Status post radical prostatectomy, unfortunately patient had a positional injury and had woke up with numbness and weakness in both hands and arms, the left hand fortunately has come back significantly and he is able to move it control it has good strength. Low bit of numbness still in the fingertips. Right hand unfortunately is still significantly compromised he is able to move it and squeeze but has significant weakness and the biceps and fingers squeezing control is also weak recommended continued movement of the arm not holding it still not the baby at. Probably will need physical therapy for the right hand for long-term recovery I expect a full recovery but this may take a long time explained this to the patient. Will keep him 1 more day in the hospital recover also to assist with getting out of bed and movement we will consult PT and OT because of the injury. Objective Data Objective Data Vital Signs: Vital Signs Temp Pulse Resp BP Pulse Ox O2 Del Method O2 Flow Rate 97.8 F 89 16 135/86 H 96 Room Air 2 10/03/23 05:09 10/03/23 05:09 10/03/23 05:09 10/03/23 05:09 10/03/23 05:09 10/03/23 05:09 10/02/23 13:25 Oxygen Flow Rate (L/min) 2 Oxygen Delivery Method Room Air Weight: 99 kg Body Mass Index (BMI) 32.2 Intake & Output: Intake and Output for Last 24 Hours 10/01/23 10/02/23 10/03/23 23:59 23:59 23:59 Intake Total 2406.75 / 2406.75 864.58 / 864.58 Output Total 815 / 1715 1600 / 1600 Balance 1591.75 / 691.75 -735.42 / -735.42 Lab / Micro Data 10/03/23 06:07 09/27/23 08:15 Labs: Laboratory Results - last 24 hr 10/02/23 12:09: POC Glucose 164 H 10/02/23 21:41: POC Glucose 200 H 10/03/23 06:07: WBC 12.7 H, RBC 5.04, Hgb 15.6, Hct 45.1, MCV 89.5, MCH 31.0, MCHC 34.6, RDW Std Deviation 41.1, RDW Coeff of Neelam 12.6, Plt Count 238, MPV 10.0 10/03/23 06:09: POC Glucose 145 H
[2023-10-03] MEDS: Losartan Potassium 50 MG Tablet PO (08:11)
[2023-10-03] MEDS: Zinc Sulfate 50 mg zinc (220 mg) ORAL capsule PO (08:11)
[2023-10-03] MEDS: Cephalexin 500 MG Capsule PO ×2 (08:11→21:30)
[2023-10-03] MEDS: Docusate Sodium 100 MG Capsule 200 MG PO ×2 (08:11→21:30)
[2023-10-03] MEDS: Loratadine 10 MG Tablet PO (08:11)
[2023-10-03 08:20] LABS: Anion Gap 10 (5-15); BUN 18 mg/dL (7-18); BUN/Creat Ratio 17.3 RATIO (10-20); Calcium,Total 8.7 mg/dL (8.5-10.1); Chloride 105 mmol/L (98-107); Creatinine, Serum 1.04 mg/dL (0.70-1.30); EST Glomerular Filtration Rate 78 mL/min (>60); Est Glom Filt Rate - Afr Amer 94 mL/min (>60); Estimated Creatinine Clearance 89.82 ml/min; Glucose 154 mg/dL (74-106); Potassium 3.9 mmol/L (3.5-5.1); Sodium Level 137 mmol/L (136-145)
[2023-10-03] MEDS: 0.9% Saline Lock 10 ML Syringe IV ×4 (12:00→23:37)
[2023-10-03 12:38] LABS: Bedside Glucose 198 mg/dL (74-106)
--- NOTE | 2023-10-03 15:27 | CASEMGMT ---
Addendum entered by Caitlyn Correa 10/03/23 16:01: Paged who is aware that rx for OP therapy and FWW will be on chart for signature pending pt needs after therapy tomorrow. Physician requesting HH therapy. ALETHEA RO to follow tomorrow after pt has therapy in hospital. Original Note: ALETHEA RO into pt room, pt sitting up in bed with at bedside. Pt reports he was I in ADL's at home, does not use AD. 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 Pt states at this point he cannot discuss dc planning. He states that he needs to see how he does with therapy tomorrow but is unsure if he will even be able to dc tomorrow. Pt does talk about potentially needing outpatient therapy services at [facility]. He states he does not know if he has a flatbed company driver for this. Discussed use of hospital van. ALETHEA RO to follow and meet with pt tomorrow after therapy. Pt denies further needs currently.
[2023-10-03 17:07] LABS: Bedside Glucose 153 mg/dL (74-106)
[2023-10-03] MEDS: metFORMIN HCl 500 MG Tablet PO (21:30)
[2023-10-03 21:50] LABS: Bedside Glucose 256 mg/dL (74-106)
[2023-10-04 02:42] VITALS: BP 142/85; PULSE 75; RESP 16; TEMP 36.8; O2SAT 96
[2023-10-04] MEDS: Ketorolac 15 MG/ML Vial IV ×2 (05:37→11:26)
[2023-10-04] MEDS: 0.9% Saline Lock 10 ML Syringe IV ×3 (05:37→15:00)
[2023-10-04 06:09] LABS: Bedside Glucose 154 mg/dL (74-106)
[2023-10-04 06:58] VITALS: O2SAT 95
[2023-10-04 07:53] VITALS: BP 146/73; PULSE 73; RESP 16; TEMP 36.7; O2SAT 99
--- NOTE | 2023-10-04 09:07 | CASEMGMT ---
Discharge Planning A list of?HH providers including quality and resource use data and consistent with the patient's preferred geographic region, medical needs, and insurance network was created in [employer].? This list was provided to the RN JAYJAY. Nerissa Alarcon, Discharge Planning Asst.
[2023-10-04] MEDS: Cephalexin 500 MG Capsule PO (09:44)
[2023-10-04] MEDS: Losartan Potassium 50 MG Tablet PO (09:44)
[2023-10-04] MEDS: Loratadine 10 MG Tablet PO (09:44)
[2023-10-04] MEDS: Docusate Sodium 100 MG Capsule 200 MG PO (09:45)
[2023-10-04] MEDS: Zinc Sulfate 50 mg zinc (220 mg) ORAL capsule PO (09:46)
--- NOTE | 2023-10-04 11:28 | CASEMGMT ---
Addendum entered by Caitlyn Correa 10/04/23 12:53: Pt called ALETHEA RO and states he has decided that he would like a FWW. He states he would be ok with [facility] now. Referral sent to [facility] via [facility] at this time. Original Note: ALETHEA RO into pt room, pt sitting up in chair. Pt states that he feels he has improved since yesterday. He feels he may be ready for dc later today but wants the day to progress. Discussed a FWW with pt. Provided pt with a local in network list of DME companies. Pt states he does not care for [facility] and would like to buy on own from [employer]. He is aware that [employer] does not take insurance and that we could obtain through the insurance. Pt states he wants to speak to his before deciding this. Provided pt with ALETHEA RO phone number on the white board and he will call ALETHEA RO if he wants the walker. Currently pt does not feel he needs home therapy and is undecided if he wants outpt therapy. Provided pt with a signed rx for therapy should he get home and change his mind. Pt denies further needs.
[2023-10-04 11:54] LABS: Bedside Glucose 182 mg/dL (74-106)
[2023-10-04 14:55] VITALS: BP 152/87; PULSE 70; RESP 18; TEMP 36.5; O2SAT 99
--- NOTE | 2023-10-04 15:30 | DS.PCM_ITS ---
Providers Date of Admission: 10/02/23 Date of Discharge: 10/04/23 Primary Care Physician: Dr. Shobha Lynn MD Reason For Visit: Laparoscopic Robotic Radical Prostatectomy Diagnosis Discharge Diagnosis (1) Cancer of prostate with intermediate recurrence risk (stage T2b-c or [place] 7 or PSA 10-20): Status: Acute Code(s): C61 - Malignant neoplasm of prostate Medications at Discharge Home Medications aspirin 81 mg chewable tablet 162 mg PO BID 10/23/17 cholecalciferol (vitamin D3) 25 mcg (1,000 unit) capsule 4,000 unit PO BID 10/23/17 loratadine 10 mg tablet 10 mg PO QDAY 10/23/17 losartan 50 mg tablet 50 mg PO DAILY 01/24/21 metformin 500 mg tablet 500 mg PO QHS 01/24/21 zinc gluconate 30 mg tablet 50 mg PO DAILY 07/29/23 cephalexin 500 mg capsule 500 mg PO TID #21 caps 10/02/23 docusate sodium 100 mg capsule (Colace) 100 mg PO BID #20 caps 10/02/23 oxycodone 5 mg tablet 5 mg PO Q6H PRN pain 7 days #14 tabs 10/02/23 methylprednisolone 4 mg tablets in a dose pack (Medrol (Mayur)) See Rx Instructions PO .COMPLEX #21 tabs 10/04/23 Hospital Course Summary of Care Provided Minutes Spent on Discharge: 20 Hospital Course: 58-year-old male who underwent a radical prostatectomy. Surgery went well however unfortunately because of positional injury patient woke up with paresthesia and weakness in both his hands he was immediately put on a steroid dosage and went physical therapy fortunately his numbness and strength in the left hand came back fairly quickly and now his strength and numbness is coming back in the right hand but much slower he still has some residual weakness in the right hand but it is improving day by day and he still has some numbness in the right hand but it is improving he does have a lot of pain in the shoulders. He was assessed by PT and OT and he was given home physical therapy to help with rehab from paresthesia from started some sort of positional injury in the right hand. And he is improving he will go home with a Medrol Dosepak stool softeners antibiotics and mild pain medicine he will follow-up in 2 weeks my office to have the catheter removed. Also reviewed the tissue report with the patient. Physical Exam Const alert and oriented x3 General Appearance: cooperative HEENT normocephalic, head/scalp atraumatic, EAC's normal and TM's normal bilaterally Eyes PERRL and EOMs intact bilaterally Pupil: sluggish Neck no lymphadenopathy, supple and no JVD General: trachea midline Lymph Lymphatic: no lymphadenopathy noted, lymphedema and lymphadenopathy Resp normal respiratory effort, normal air movement and clear to auscultation bilaterally Cardio regular rate, regular rhythm and peripheral pulses 2+ throughout GI soft to palpation, non-tender and non-distended Extremity normal capillary refill and no clubbing, cyanosis or edema General Extremity: no tenderness to palpation of joints or extremities Skin no rashes or lesions noted General Skin Exam: turgor normal Lesions: no lesions Rashes: no rashes Neuro CN's II-XII intact bilaterally Speech: speech normal Motor Exam: strength 5/5 throughout; Negative for general weakness Psych thought process normal, cooperative and affect normal Appearance: appropriate Medical Records Data Attestation: I reviewed the patient's medical records Weight / BMI Weight Weight: 99 kg Body Mass Index (BMI) 32.2 ABG / Lab / Microbiology Data 10/03/23 06:07 10/03/23 06:07 Laboratory: Laboratory Results - last 24 hr 10/03/23 16:46: POC Glucose 153 H 10/03/23 21:29: POC Glucose 256 H 10/04/23 05:37: POC Glucose 154 H 10/04/23 11:30: POC Glucose 182 H D/C Instructions Discharge Diet: No restrictions and Light diet - advance as tolerated Call your doctor if you observe: Fever of 101 or Higher Catheter: Barragan to leg bag and Barragan to large bag Drain: [place] Please Follow Up With: Delbert Ty MD When: 2 weeks Meaningful Use Info Meaningful Use Diagnoses (Choose all that apply): None applicable Discharge Plan Admission Admit Date/Time: 10/02/23 07:51 Primary Reason for Your Visit: Radical prostatectomy Attending Provider: Delbert Ty Primary Care Provider: Shobha Lynn Discharge Orders/Prescriptions Prescriptions: New oxycodone 5 mg tablet 5 mg PO Q6H PRN (Reason: pain) 7 Days Qty: 14 0RF docusate sodium [Colace] 100 mg capsule 100 mg PO BID Qty: 20 0RF cephalexin 500 mg capsule 500 mg PO TID Qty: 21 0RF methylprednisolone [Medrol (Mayur)] 4 mg tablets,dose pack See Rx Instructions .ROUTE .COMPLEX Qty: 21 0RF Rx Instructions: for 6 days Continued cholecalciferol (vitamin D3) 1,000 unit capsule 4,000 unit PO BID loratadine 10 mg tablet 10 mg PO QDAY aspirin 81 mg tablet,chewable 162 mg PO BID metformin 500 mg tablet 500 mg PO QHS losartan 50 mg tablet 50 mg PO DAILY zinc gluconate 30 mg tablet 50 mg PO DAILY Referrals / Follow Up: Shobha Lynn MD [Primary Care Provider] - Delbert Ty MD [Med Staff - Active Staff] - Disposition Discharge Orders: Discharge Patient (Routine); Ordered 10/04/23 Ordered By: Dr. Delbert Ty
== END 2023-10-04 18:49 | disposition home or self-care (01) ==
LOC: SDC 13:08 → MS3 13:08
PROVIDERS: Anesthesiology; Admitting Provider Urology; PCP Family Medicine; Referring Provider Urology; Visit Provider Urology
PROC: 0VT04ZZ Resection of Prostate, Percutaneous Endoscopic Approach (ICD-10-PCS; CPT 55866; principal; 2023-10-02 07:10)
DX: C61 Malignant neoplasm of prostate (principal); E11.9 Type 2 diabetes mellitus without complications; I10 Essential (primary) hypertension; Z79.82 Long term (current) use of aspirin; M25.512 Pain in left shoulder; M79.641 Pain in right hand; M25.511 Pain in right shoulder; Z79.899 Other long term (current) drug therapy; R53.1 Weakness; Z86.711 Personal history of pulmonary embolism; D75.1 Secondary polycythemia; Z77.29 Contact with and (suspected) exposure to other hazardous substances
CPT/HCPCS: 55866; 00865; 36415; 80048; 82962; 83036; 85027; 86850; 86900; 86901; 88305; 88307; 88309; 93005; 96361; 96374; 96375; 96376; 97110; 97116; 97162; 97166; 97530; 97535; 99221; J7120; A4216; G0378; J2405

== ENCOUNTER → 2023-11-25 | Outpatient (CLI) | payer OTHER, SELFPAY ==
[2023-11-25 12:07] LABS: PSA,Total- Diagnostic < 0.01 ng/mL (0.0-4.0)
== END | disposition home or self-care (01) ==
LOC: LAB 10:34
PROVIDERS: PCP Family Medicine; Referring Provider Urology; Visit Provider Urology
DX: C61 Malignant neoplasm of prostate (principal)
CPT/HCPCS: 36415; 84153

== ENCOUNTER → 2024-03-27 | Outpatient (CLI) | payer OTHER, SELFPAY ==
[2024-03-27 09:22] LABS: PSA,Total- Diagnostic < 0.01 ng/mL (0.0-4.0)
== END | disposition home or self-care (01) ==
PROVIDERS: PCP Family Medicine; Referring Provider Urology; Visit Provider Urology
DX: C61 Malignant neoplasm of prostate (principal)
CPT/HCPCS: 36415; 84153

== ENCOUNTER → 2024-04-14 | Outpatient (CLI) | payer OTHER, SELFPAY ==
[2024-04-14 12:12] LABS: Protein, Urine (Random) 21.1 mg/dL (<11.9); Protein:Creat Ratio 107 mg/g CRE (0-200)
[2024-04-14 12:48] LABS: Cholesterol 169 mg/dL (200); High Density Lipoprotein 37 mg/dL; Triglycerides 84 mg/dL; Very Low Density Lipoprotein 17 mg/dL (5-40)
== END | disposition home or self-care (01) ==
LOC: MFPLAB 10:12
PROVIDERS: PCP Family Medicine; Visit Provider Family Medicine
DX: E11.9 Type 2 diabetes mellitus without complications (principal)
CPT/HCPCS: 36415; 80061; 82570; 84156

== ENCOUNTER 2024-08-12 19:25 | Emergency (ER) | payer OTHER, SELFPAY ==
[2024-08-12 19:27] VITALS: BP 152/85; PULSE 76; RESP 18; TEMP 36.6; O2SAT 100; BMI 34.9
--- NOTE | 2024-08-12 19:50 | EKG12_ITS ---
Test Reason : DYSRHYTHMIA Blood Pressure : */* mmHG Vent. Rate : 78 BPM Atrial Rate : 78 BPM P-R Int : 190 ms QRS Dur : 100 ms QT Int : 378 ms P-R-T Axes : 16 -49 17 degrees QTcB Int : 430 ms Normal sinus rhythm Left axis deviation Incomplete right bundle branch block Inferior infarct , age undetermined Abnormal ECG Confirmed by KOREY BELTRAN, EMMY ([id number]), editorial assistant LIS COELHO ([id number]) on 08/13/2024 1:27:56 PM Referred By: Confirmed By: EMMY NAIR MD
[2024-08-12 19:58] LABS: Absolute Lymphocyte Count 1.22 X10^3/uL (0.83-4.51); Absolute Neutrophil Count 3.9 X10^3/uL (2.0-7.7); Basophil# 0.05 X10^3/uL; Basophil% 0.8 % (0-1); Eosinophil# 0.23 X10^3/uL; Eosinophils% 3.9 % (0-5); Hematocrit 46.4 % (40-54); Hemoglobin 16.5 g/dL (13.0-16.5); Lymphocyte # 1.22 X10^3/ul (0.83-4.51); Lymphocyte % 20.5 % (19-41); Mean Corp Hgb Conc 35.6 g/dL (32-36); Mean Corpuscular Hgb 31.5 pg (27.0-32.0); Mean Corpuscular Volume 88.5 fL (80-94); Mean Platelet Vol. 9.7 fl (6.2-12.0); Monocyte# 0.49 X10^3/uL; Monocyte% 8.2 % (0-10); NRBC Flagged by Analyzer 0 % (0-5); Neutrophil # 3.94 X10^3/uL (2.7-7.7); Neutrophil % 66.3 % (47-70); Platelet Count 209 K/mm3 (150-450); RBC Distribution Width CV 12.8 % (11.6-14.6); RBC Distribution Width SD 41.4 fl (35.1-43.9); Red Blood Count 5.24 M/mm3 (4.6-6.2)
[2024-08-12 20:19] LABS: ALB/GLOB Ratio 0.9 RATIO (0.9-2.4); AST(SGOT) 15 U/L (15-37); Alanine Aminotransfer ALT/SGPT 27 U/L (16-61); Albumin, Serum 3.6 g/dL (3.2-5.0); Alkaline Phosphatase 68 U/L (45-117); Anion Gap 6 (5-15); BUN 13 mg/dL (7-18); BUN/Creat Ratio 14.3 RATIO (10-20); Calcium,Total 8.8 mg/dL (8.5-10.1); Chloride 104 mmol/L (98-107); Creatinine, Serum 0.91 mg/dL (0.70-1.30); EST Glomerular Filtration Rate 91 mL/min (>60); Est Glom Filt Rate - Afr Amer 110 mL/min (>60); Estimated Creatinine Clearance 102.21 ml/min; Glucose 197 mg/dL (74-106); Potassium 3.8 mmol/L (3.5-5.1); Protein, Total 7.6 g/dL (6.4-8.2); Sodium Level 138 mmol/L (136-145); Troponin-I HS (w/2H Reflex) 6 pg/mL (3.0-78.0)
[2024-08-12 21:13] LABS: Bacteria 0 SEEN /hpf (None Seen); Mucous, Urine 0 SEEN /hpf (<or=2+); Red Blood Cells-Urine 0 SEEN /hpf (0-5); Squamous Epithelial Cells - UA 0 SEEN /hpf (0-5)
[2024-08-12 21:32] LABS: Color, Urine Yellow (Yellow); Glucose, Dipstick 250 mg/dl (Normal); Ketone-Dipstick 5 mg/dl (Negative); Leukocyte Esterase-Dipstick Negative /ul (Negative); Nitrite-Dipstick Negative (Negative); Occult Blood-Urine 10 /ul (Negative); Protein-Dipstick Negative (Negative); Specific Gravity, Urine 1.015 (1.002-1.030); Urine Bilirubin Dipstick Negative (Negative); Urine Clarity Clear (Clear); Urine Urobilinogen Normal (Normal)
--- NOTE | 2024-08-12 21:49 | CT_ITS ---
PROCEDURE: ABDOMEN/PELVIS W IV CONT ONLY REASON FOR EXAM: Left lower quadrant pain. TECHNIQUE: Abdomen and pelvis CT with intravenous contrast. COMPARISON: 07/14/2023 CT. FINDINGS: Lung bases: Clear Liver: Unremarkable. Gallbladder: Contracted with a small internal gallstone. Spleen: Unremarkable. Pancreas: Unremarkable. Adrenals: Unremarkable. Kidneys: Unremarkable. Bladder: Unremarkable. Reproductive Organs: Unremarkable. Bowel: Unremarkable. Appendix: Normal. Lymph nodes: No suspicious lymph node enlargement. Vasculature: Mild atherosclerosis. Peritoneum / Retroperitoneum: No ascites. No free air. Bones: Unremarkable. Fat containing left paramidline ventral hernia. Mild adjacent fat stranding. CT/Abdomen/Pelvis W IV Cont ONLY IMPRESSION: Fat containing ventral hernia with mild adjacent fat stranding. Correlate with physical exam to exclude incarceration. Cholelithiasis within a contracted gallbladder. If there is clinical concern f or acute cholecystitis, consider ultrasound. One or more dose reduction techniques were used (e.g., Automated exposure contr ol, adjustment of the mA and/or kV according to patient size, use of iterative reconstruction technique). Reading Location: [id number]
--- NOTE | 2024-08-12 21:50 | EDS_ITS ---
HPI HPI - GI History of Present Illness Chief Complaint: Abd Pain Informant: patient Abdominal Pain/Flank Pain Onset: Today Context: Gradual Onset Timing: Continuous Quality: Aching and Sharp Location: LUQ Worsened by: Movement Relieved by: Nothing Nausea/Vomiting/Emesis GI Symptom: Negative for Nausea or Vomiting Diarrhea/Melena/Hematochezia GI Symptom: Negative for Diarrhea, Melena or Hematochezia Associated Symptoms Associated Symptoms: Negative for Dysuria, Frequency or Hematuria Narrative Narrative: Patient presents with abdominal pain that began today. Patient states he recently returned from [facility] today. Patient states that after he landed in [place], he started having some pain in his stomach. Patient states he has had some upper respiratory congestion for the past few days. Patient states his pain is mainly over the left upper abdomen. Patient states it was w orse with movement. Patient states nothing made it better. Patient denies any nausea or vomiting. Patient describes it as sharp and aching. Patient states that after he got to the emergency department, he was able to lay down and take a brief nap. Patient states that after that his pain got better. Patient denies any diarrhea, melena, or hematochezia. Patient denies any dysuria, frequency, or hematuria. [facility] Medical History Family hx of colon cancer Loss of hearing Wears glasses Cancer Alcohol use Arthritis Pulmonary embolism Migraine headache Loss of consciousness Dietary restriction Non-smoker Leg cramps Carbon monoxide poisoning Abnormal pathology report from prostate needle biopsy Head injury Elevated PSA Hypertension Diabetes mellitus Bronchitis Home Medications ?Medication ?Instructions ?Recorded ?Last Taken ?Type aspirin 81 mg chewable tablet 162 mg PO BID 10/23/17 09/22/23 History cholecalciferol (vitamin D3) 25 4,000 unit PO BID 10/23/17 Unknown History mcg (1,000 unit) capsule loratadine 10 mg tablet 10 mg PO QDAY 10/23/17 Unknown History losartan 50 mg tablet 50 mg PO DAILY 01/24/21 10/02/23 History metformin 500 mg tablet 500 mg PO QHS 01/24/21 Unknown History zinc gluconate 30 mg tablet 50 mg PO DAILY 07/29/23 Unknown History Allergy/AdvReac Type Severity Reaction Status Date / Time Quinolones Allergy Severe Rash Verified 04/29/24 10:16 Sulfa (Sulfonamide Allergy Severe Rash Verified 04/29/24 10:16 Antibiotics) levofloxacin (From Levaquin) Allergy Unknown Verified 04/29/24 10:16 lisinopril AdvReac COUGH Verified 04/29/24 10:16 Family History (Updated 04/29/24 @ 10:13 by Arline Del Real) Unknown Diabetes Unknown Prostate cancer Aunt Colon cancer Uncle Colon cancer Grandfather Colon cancer Surgical History Hx of colonoscopy History of tonsillectomy History of cystoscopy Social History household members: spouse current occupational status: employed current occupation: [employer] Smoking Status: Never smoker alcohol intake: current alcohol intake frequency: holidays/special occasions only substance use type: does not use ROS ROS ED Constitutional Constitutional ED: Denies chills or fever(s) Eyes Eyes: Denies blurry vision or change in vision ENT ENT ED: Reports rhinorrhea; Denies sore throat Cardiovascular Cardiovascular: Denies chest pain or palpitations Respiratory/Chest Respiratory/Chest: Denies cough or dyspnea Gastrointestinal Gastrointestinal: Reports abdominal pain; Denies nausea or vomiting Genitourinary Genitourinary ED: Denies dysuria or hematuria Musculoskeletal Musculoskeletal: Denies back pain or neck pain Integumentary Denies abscess or rash Neurologic Neurologic: Denies headache(s) or weakness Allergic/Immunologic Allergic/Immunologic ED: Denies mouth swelling or urticaria EXAM Physical Exam Const Vital Signs: 08/12/24 19:27 08/12/24 22:44 Temperature 97.9 F Temperature Source Temporal Pulse Rate 76 72 Respiratory Rate 18 16 Blood Pressure 152/85 H 147/78 H Blood Pressure Mean 107 101 Pulse Ox 100 99 Oxygen Delivery Method Room Air Room Air Positive well nourished and well developed General Appearance ED: well developed and NAD HEENT Reports moist mucous membranes Neck supple and no JVD Resp normal respiratory effort and clear to auscultation bilaterally Cardio regular rate and regular rhythm GI non-distended Palpation: soft and tender LUQ (Mild); Negative for guarding or rebound tenderness present Neuro CN's II-XII intact bilaterally, moves all extremities and no sensory deficits noted Sensorium / Orientation: alert Motor Exam: strength 5/5 throughout Psych mental status grossly normal MDM MDM MDM Narrative Medical decision making narrative: Differential diagnosis includes ureteral calculus, diverticulitis, colitis, pyelonephritis, pancreatitis, bowel obstruction, perforation, mesenteric adenitis, cardiac dysrhythmia, cardiac ischemia, and viral illness. CBC will be obtained to assess for leukocytosis and anemia. Comprehensive metabolic profile will be obtained to assess for electrolyte abnormality and renal function. Urinalysis will be obtained to assess for urinary tract infection and hematuria. Lipase will be obtained to assess for pancreatitis. CT scan of the abdomen and pelvis will be obtained to assess for ureteral calculus, diverticulitis, bowel obstruction, and perforation. EKG will be obtained to assess for cardiac dysrhythmia and cardiac ischemia. High-sensitivity troponin will be obtained to assess for cardiac ischemia. Lab Data Attestation: I reviewed the patient's lab results. Lab results narrative: CBC was reviewed and was within normal limits. Comprehensive metabolic profile was reviewed and was within normal limits. High-sensitivity troponin was reviewed and was normal at 6. Lipase was reviewed and was normal at 41. Urinalysis was reviewed. There is no evidence of urinary tract infection or hematuria. 2-hour repeat high-sensitivity troponin was reviewed and was normal at 5. Labs: Laboratory Results - last 24 hr 08/12/24 08/12/24 08/12/24 19:43 20:55 22:11 WBC 6.0 RBC 5.24 Hgb 16.5 Hct 46.4 MCV 88.5 MCH 31.5 MCHC 35.6 RDW Std Deviation 41.4 RDW Coeff of Neelam 12.8 Plt Count 209 MPV 9.7 Immature Gran % (Auto) 0.300 Neut % (Auto) 66.3 Lymph % (Auto) 20.5 [place] % (Auto) 8.2 Eos % (Auto) 3.9 Baso % (Auto) 0.8 Absolute Neuts (auto) 3.9 Absolute Lymphs (auto) 1.22 Nucleated RBC % 0 Sodium 138 Potassium 3.8 Chloride 104 Carbon Dioxide 29.0 Anion Gap 6 BUN 13 Creatinine 0.91 Estim Creat Clear Calc 102.21 Est GFR (MDRD) Af Amer 110 Est GFR (MDRD) Non-Af 91 BUN/Creatinine Ratio 14.3 Glucose 197 H Calcium 8.8 Total Bilirubin 0.50 AST 15 ALT 27 Alkaline Phosphatase 68 Troponin I High Sens 6 5 Total Protein 7.6 Albumin 3.6 Globulin 4.0 Albumin/Globulin Ratio 0.9 Lipase 41 Urine Color Yellow Urine Clarity Clear Urine pH 6.0 Ur Specific [place] 1.015 Urine Protein Negative Urine Glucose (UA) 250 H Urine Ketones 5 H Urine Occult Blood 10 H Urine Nitrite Negative Urine Bilirubin Negative Urine Urobilinogen Normal Ur Leukocyte Esterase Negative Urine RBC 0 SEEN Urine WBC 0-5 SEEN Ur Squamous Epith Cells 0 SEEN Urine Bacteria 0 SEEN Urine Mucus 0 SEEN Radiography Diagnostic Testing: Clinical Impression(s) from Imaging Studies Abdomen/Pelvis CT 08/12/24 21:49 IMPRESSION: Fat containing ventral hernia with mild adjacent fat stranding. Correlate with physical exam to exclude incarceration. Cholelithiasis within a contracted gallbladder. If there is clinical concern for acute cholecystitis, consider ultrasound. One or more dose reduction techniques were used (e.g., Automated exposure control, adjustment of the mA and/or kV according to patient size, use of iterative reconstruction technique). Reading Location: [facility] CT scan of the abdomen and pelvis was obtained. There is a fat-containing ventral hernia with mild fat stranding. There is cholelithiasis with a contracted gallbladder. There is no free air or free fluid. There is no evidence of obstruction or perforation. This was interpreted by the radiologist and was also dependently reviewed by myself. EKG Initial EKG: Attestation: I personally reviewed and interpreted this EKG as follows: Interpretation: Sinus Rhythm (78), RBBB (Incomplete) and Non-Specific ST Changes Comments: EKG was obtained. On my independent interpretation, it showed a normal sinus rhythm with a rate of 78. VA interval, QRS interval, and QTc intervals were all normal. There is left axis deviation at -49. There are no acute ST or T wave changes. There is an incomplete right bundle branch block. Prior EKG tracings: not available for review Prior: No Prior Treatment and Re-Evaluation :: Patient was advised of his findings. Patient had no further pain here in the emergency department. Patient had no abdominal tenderness on reevaluation. I do not feel this is an incarcerated or strangulated hernia. Patient was advised of his findings. Patient was instructed to start with a bland diet and advance as tolerated. Patient was instructed to follow-up with his primary care physician in 5 to 7 days. Patient understood and was agreeable with the plan. All questions were answered. Discharge Plan Triage Chief Complaint: Abd Pain ED Provider: Mac Sloan Dx/Rx/DC Orders Clinical Impression: Abdominal pain, Ventral hernia, Dysphagia Instructions: ED Hernia (Adult), ED Abdominal Pain Unkn Cause Male... Prescriptions: No Action cholecalciferol (vitamin D3) 1,000 unit capsule 4,000 unit PO BID loratadine 10 mg tablet 10 mg PO QDAY aspirin 81 mg tablet,chewable 162 mg PO BID metformin 500 mg tablet 500 mg PO QHS losartan 50 mg tablet 50 mg PO DAILY zinc gluconate 30 mg tablet 50 mg PO DAILY Primary Care Provider: Shobha Lynn Referrals: Shobha Lynn MD [Primary Care Provider] - 5-7 Days Print Language: Venezuelan Disposition Disposition: Home, Self Care
[2024-08-12 21:52] LABS: White Blood Cells 0-5 SEEN /hpf (0-5)
[2024-08-12 21:54] LABS: Reflex Troponin-HS? (from REC) Y
[2024-08-12 22:32] LABS: Lipase 41 U/L (13-75)
[2024-08-12 22:34] LABS: Troponin-I HS 5 pg/mL (3.0-78.0)
[2024-08-12 22:44] VITALS: BP 147/78; PULSE 72; RESP 16; O2SAT 99
== END 2024-08-12 23:29 | disposition home or self-care (01) ==
PROVIDERS: Emergency Provider Emergency Medicine; PCP Family Medicine; Visit Provider Emergency Medicine
DX: R10.9 Unspecified abdominal pain (principal); E11.9 Type 2 diabetes mellitus without complications; K43.9 Ventral hernia without obstruction or gangrene; Z80.0 Family history of malignant neoplasm of digestive organs; R13.10 Dysphagia, unspecified; I10 Essential (primary) hypertension; Z79.82 Long term (current) use of aspirin; Z86.711 Personal history of pulmonary embolism
CPT/HCPCS: 74177; 80053; 81001; 83690; 84484; 85025; 93005; 99283; A4216

== ENCOUNTER 2024-08-24 06:01 | Day surgery (SDC) | payer OTHER, SELFPAY ==
--- NOTE | 2024-08-21 11:12 | PAT.ANESEVAL ---
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 When Was Last Pacemaker Check QUESTION #4 FULL TEXT: You/Your Family Experience fever (hyperthermia) with Anesthesia Last Oral Intake Last Oral intake: Last Oral Intake NPO since Meds taken in AM with sips of water? 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 Female No 08/21/24 10:50 HX of Motion Sickness No 08/21/24 10:50 HX of N/V After Surgery No 08/21/24 10:50 Non-Smoker Yes 08/21/24 10:50 Duration of Surgery greater No 08/21/24 10:50 than 60 minutes Number of Risk Factors 1 08/21/24 10:50 PONV Score Low Risk 08/21/24 10:50 Height & Weight Height & Weight: Anesthesia: Height & Weight Height 5 ft 8 in 04/29/24 10:23 Respiratory Assessment Respiratory Assessment - robotic machine tender production: Respiratory Tract Infection Hx - robotic machine tender production Hx Respiratory Tract Infection No 08/21/24 10:50 STOP Sleep Apnea STOP Sleep Apnea - robotic machine tender production: STOP Sleep Apnea - robotic machine tender production Hx Hypertension Yes 08/21/24 10:50 Hx Sleep Apnea No 08/21/24 10:50 CPAP BIPAP Do you snore loudly (louder No 08/21/24 10:50 than talking or can be heard Do you often feel tired/ No 08/21/24 10:50 fatigued/ sleepy during daytime? Has anyone observed you stop No 08/21/24 10:50 breathing during sleep? STOP Results Negative 08/21/24 10:50 QUESTION #5 FULL TEXT : Do you snore loudly (louder than talking or can be heard through closed doors)? 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 Specify any problems Hx of Preganancy in last 3 N/A 08/21/24 10:50 Months Nurse Filling Out Transfusion EHPURCHASE 08/21/24 10:50 & Questions: Date: 08/21/24 08/21/24 10:50 Time: 11:04 08/21/24 10:50 Patient unable to answer at this time (ie. confused, unrespo /Reproduction History /Reproductive History - robotic machine tender production: /Reproductive Hx- robotic machine tender production Hx Now Gestational Age (in weeks): EDC: Hx Hx Para Hx Section SAB No 09/18/23 11:15 PFSH Medical History Family hx of colon cancer Loss of hearing Wears glasses Cancer Alcohol use Arthritis Pulmonary embolism Migraine headache Loss of consciousness Dietary restriction Non-smoker Leg cramps Carbon monoxide poisoning Abnormal pathology report from prostate needle biopsy Head injury Elevated PSA Hypertension Diabetes mellitus Bronchitis Home Medications ?Medication ?Instructions ?Recorded ?Last Taken ?Type aspirin 81 mg chewable tablet 162 mg PO BID 10/23/17 09/22/23 History cholecalciferol (vitamin D3) 25 8,000 unit PO DAILY 10/23/17 Unknown History mcg (1,000 unit) capsule loratadine 10 mg tablet 10 mg PO QDAY 10/23/17 Unknown History losartan 50 mg tablet 50 mg PO DAILY 01/24/21 10/02/23 History metformin 500 mg tablet 500 mg PO QHS 01/24/21 Unknown History zinc gluconate 30 mg tablet 50 mg PO DAILY 07/29/23 Unknown History Allergy/AdvReac Type Severity Reaction Status Date / Time Quinolones Allergy Severe Rash Verified 10/16/24 10:16 Sulfa (Sulfonamide Allergy Severe Rash Verified 04/29/24 10:16 Antibiotics) levofloxacin (From Levaquin) Allergy Unknown Verified 04/29/24 10:16 lisinopril AdvReac COUGH Verified 04/29/24 10:16 Family History (Updated 04/29/24 @ 10:13 by Arline Del Real) Unknown Diabetes Unknown Prostate cancer Aunt Colon cancer Uncle Colon cancer Grandfather Colon cancer Surgical History History of prostatectomy Hx of colonoscopy History of tonsillectomy History of cystoscopy Social History household members: spouse current occupational status: employed current occupation: [employer] Smoking Status: Never smoker alcohol intake: current alcohol intake frequency: holidays/special occasions only substance use type: does not use Audit: Pertinent Findings Pertinent Findings EKG Perinent findings: 08/12/2024 normal sinus rhythm 78 bpm left axis deviation incomplete right bundle branch block inferior infarct age undetermined Recommendation Anesthesia Recommendation Anesthesia recommendation: OPTIMIZED for anesthesia
[2024-08-24] VITALS (9 sets, daily range): BP systolic 108–135; BP diastolic 76–93; PULSE 71–81; RESP 16–18; TEMP 36.3–36.9; O2SAT 95–98; BMI 32.8
--- NOTE | 2024-08-24 | COLBX_PTH ---
PATIENT: ADAM QUINN LOC: EN U#:[id number] AGE/SX: 59/M ROOM: RE08/24/[address]: Dr. Martin Trivedi DO : 1965 BED: DIS: 08/24/2024 SPEC #: [id number] RECD: 08/24/24 09:42 STATUS: ANGELICA TENZIN #: [id number] DELVIN: 08/24/24 00:[address]: Martin Trivedi DEPT: SURGICAL PATHOLOGY RECD BY: Herson Brown ENTERED: 08/24/24 09:43 SP TYPE: COLON BX GONZALES DR: Dr. Shobha Lynn MD Tissues: A - Gastric mucous membrane B - Sigmoid colon biopsy C - Sigmoid colon biopsy Procedures: Surgery Specimen Level IV HEADER OPERATION: Colonoscopy, polypectomy PRE-OP DIAGNOSIS: Encounter for screening for malignant neoplasm of colon TISSUE SUBMITTED: A- Splenic flexure polyp biopsy, B- Sigmoid polyp, C- Sigmoid polyp #2 MICROSCOPIC DIAGNOSIS A. Splenic flexure polyp, biopsy: Tubular adenoma. B. Sigmoid polyp, polypectomy: Fragments of tubular adenoma. C. 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 See comment. 08/25/2024 COMMENT C. High grade dysplasia is noted at the luminal surface of the polyp and resection margin is free of adenomatous changes. Correlation with clinical, endoscopic findings and appropriate follow up are necessary. MICROSCOPIC DESCRIPTION Slides are reviewed. GROSS DESCRIPTION A. Received in fixative is one container labeled with the patient's name and designated Splenic flexure polyp biopsy. The specimen consists of one irregular fragment of light blackwell soft tissue that measures 0.3 x 0.3 x 0.1 cm. The specimen is totally submitted in one cassette. B. Received in fixative is one container labeled with the patient's name and designated Sigmoid polyp. The specimen consists of two irregular fragments of blackwell-pink polyp that in aggregate measure 0.5 x 0.5 x 0.3 cm and 0.5 x 0.3 x 0.2cm. The specimen is totally submitted in one cassette. C. Received in fixative is one container labeled with the patient's name and designated Sigmoid polyp #2. The specimen consists of a pink-red polyp measuring 0.8 x 0.5 x 0.5 cm. The presumed base is inked. The polyp is bisected and submitted entirely in one cassette. SJ 08/24/2024 TC:1 CPT:83208v6
--- NOTE | 2024-08-24 06:52 | PCM.PRE.AN2 ---
ASA Classification* ASA Classification ASA Classification: 2 Assessment & Plan Anesthesia* Anesthesia Assessment Anesthesia Assessment: Discussed sedation and/or anesthesia options, risks, benefits, and alternatives with patient/parents/legal guardian/POA. Questions invited. The patient/parents/legal guardian/POA seems to understand and agrees to proceed with anesthesia plan. Reviewed the physical assessment, medical history, allergy history and patient home medications list prior to surgery/procedure/anesthetic and documented any changes. Performed airway and anesthesia risk assessments. Anesthesia Type Anesthesia Type: MAC Anesthesia Focused Assessment* Temperature: 98.1 F Pulse Rate: 81 Blood Pressure: 132/85 Respiratory Rate: 16 Pulse Ox: 98 Airway Assessment Mouth opens: >3 cm Mallampati Score: II Focused Labs Anesthesia Preop lab: CBC WBC 6.0 K/mm3 (4.4-11.0) 08/12/24 19:43 08/12/24 RBC 5.24 M/mm3 (4.6-6.2) 08/12/24 19:43 08/12/24 Hgb 16.5 g/dL (13.0-16.5) 08/12/24 19:43 08/12/24 Hct 46.4 % (40-54) 08/12/24 19:43 08/12/24 Plt Count 209 K/mm3 (150-450) 08/12/24 19:43 08/12/24 CHEMISTRY Potassium 3.8 mmol/L (3.5-5.1) 08/12/24 19:43 08/12/24 Sodium 138 mmol/L (136-145) 08/12/24 19:43 08/12/24 BUN 13 mg/dL (7-18) 08/12/24 19:43 08/12/24 Creatinine 0.91 mg/dL (0.70-1.30) 08/12/24 19:43 08/12/24 Glucose 197 mg/dL (74-106) H 08/12/24 19:43 08/12/24 POC Glucose 182 mg/dL (74-106) H 10/04/23 11:30 10/04/23 TSH 1.71 uIU/mL (0.358-3.74) 05/04/16 11:05/04/16 COAG PT 13.7 SECONDS (11.7-14.9) 12/26/20 11:55 12/26/20 Pre-Assessment Diagnosis/Proposed Procedure Planned Operative Procedure(s): COLONOSCOPY Anesthesia History 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 When Was Last Pacemaker Check QUESTION #4 FULL TEXT: You/Your Family Experience fever (hyperthermia) with Anesthesia Last Oral Intake Last Oral intake: Last Oral Intake NPO since 05:00 08/24/24 06:30 Meds taken in AM with sips of Yes 08/24/24 06:30 water? 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 and electronics Female No 08/21/24 10:50 HX of Motion Sickness No 08/21/24 10:50 HX of N/V After Surgery No 08/21/24 10:50 Non-Smoker Yes 08/21/24 10:50 Duration of Surgery greater No 08/21/24 10:50 than 60 minutes Number of Risk Factors 1 08/21/24 10:50 PONV Score Low Risk 08/21/24 10:50 Height & Weight Height & Weight: Anesthesia: Height & Weight Height 5 ft 8 in 08/24/24 06:30 Weight: 98 kg 08/24/24 06:30 Body Mass Index (BMI) 32.8 08/24/24 06:30 Respiratory Assessment Respiratory Assessment - inspector radar and electronics: Respiratory Tract Infection Hx - inspector radar and electronics Hx Respiratory Tract Infection No 08/21/24 10:50 STOP Sleep Apnea STOP Sleep Apnea - inspector radar and electronics: STOP Sleep Apnea - inspector radar and electronics Hx Hypertension Yes 08/21/24 10:50 Hx Sleep Apnea No 08/21/24 10:50 CPAP BIPAP Do you snore loudly (louder No 08/21/24 10:50 than talking or can be heard Do you often feel tired/ No 08/21/24 10:50 fatigued/ sleepy during daytime? Has anyone observed you stop No 08/21/24 10:50 breathing during sleep? STOP Results Negative 08/21/24 10:50 QUESTION #5 FULL TEXT : Do you snore loudly (louder than talking or can be heard through closed doors)? 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 Specify any problems Hx of Preganancy in last 3 N/A 08/21/24 10:50 Months Nurse Filling Out Transfusion [facility] 08/21/24 10:50 & Questions: Date: 08/21/24 08/21/24 10:50 Time: 11:04 08/21/24 10:50 Patient unable to answer at this time (ie. confused, unrespo /Reproduction History /Reproductive History - inspector radar and electronics: /Reproductive Hx- inspector radar and electronics Hx Now Gestational Age (in weeks): EDC: Hx Hx Para Hx Section SAB No 09/18/23 11:15 PFSH Medical History Family hx of colon cancer Loss of hearing Wears glasses Cancer Alcohol use Arthritis Pulmonary embolism Migraine headache Loss of consciousness Dietary restriction Non-smoker Leg cramps Carbon monoxide poisoning Abnormal pathology report from prostate needle biopsy Head injury Elevated PSA Hypertension Diabetes mellitus Bronchitis Home Medications ?Medication ?Instructions ?Recorded ?Last Taken ?Type aspirin 81 mg chewable tablet 162 mg PO BID 10/23/17 09/22/23 History cholecalciferol (vitamin D3) 25 8,000 unit PO DAILY 04/11/18 Unknown History mcg (1,000 unit) capsule loratadine 10 mg tablet 10 mg PO QDAY 10/23/17 Unknown History losartan 50 mg tablet 50 mg PO DAILY 01/24/21 10/02/23 History metformin 500 mg tablet 500 mg PO QHS 01/24/21 Unknown History zinc gluconate 30 mg tablet 50 mg PO DAILY 07/29/23 Unknown History Allergy/AdvReac Type Severity Reaction Status Date / Time Quinolones Allergy Severe Rash Verified 04/29/24 10:16 Sulfa (Sulfonamide Allergy Severe Rash Verified 04/29/24 10:16 Antibiotics) levofloxacin (From Levaquin) Allergy Unknown Verified 04/29/24 10:16 lisinopril AdvReac COUGH Verified 04/29/24 10:16 Family History Unknown Diabetes Unknown Prostate cancer Aunt Colon cancer Uncle Colon cancer Grandfather Colon cancer Surgical History History of prostatectomy Hx of colonoscopy History of tonsillectomy History of cystoscopy Social History household members: spouse current occupational status: employed current occupation: [employer] Smoking Status: Never smoker alcohol intake: current alcohol intake frequency: holidays/special occasions only substance use type: does not use Review of Systems (Anesthesia) ROS Narrative System reviewed and no additional complaints, except as documented.
--- NOTE | 2024-08-24 07:03 | PCM.HP.STD ---
[facility] - General General Date of Admission: 08/24/24 Date of Service: 08/24/24 Chief Complaint: Screening colonoscopy HPI Narrative ADAM QUINN, is a 59 M who presents today for screening colonoscopy. He has a past medical history of type 2 diabetes, prostate cancer, polycythemia. He had a colonoscopy approximately 23 years ago. He does not have any problems with his bowels. He denies any chest pain or shortness of breath. [facility] Medical History Family hx of colon cancer Loss of hearing Wears glasses Cancer Alcohol use Arthritis Pulmonary embolism Migraine headache Loss of consciousness Dietary restriction Non-smoker Leg cramps Carbon monoxide poisoning Abnormal pathology report from prostate needle biopsy Head injury Elevated PSA Hypertension Diabetes mellitus Bronchitis Home Medications ?Medication ?Instructions ?Recorded ?Last Taken ?Type aspirin 81 mg chewable tablet 162 mg PO BID 10/23/17 09/22/23 History cholecalciferol (vitamin D3) 25 8,000 unit PO DAILY 10/23/17 Unknown History mcg (1,000 unit) capsule loratadine 10 mg tablet 10 mg PO QDAY 10/23/17 Unknown History losartan 50 mg tablet 50 mg PO DAILY 01/24/21 10/02/23 History metformin 500 mg tablet 500 mg PO QHS 01/24/21 Unknown History zinc gluconate 30 mg tablet 50 mg PO DAILY 07/29/23 Unknown History Allergy/AdvReac Type Severity Reaction Status Date / Time Quinolones Allergy Severe Rash Verified 04/29/24 10:16 Sulfa (Sulfonamide Allergy Severe Rash Verified 04/29/24 10:16 Antibiotics) levofloxacin (From Levaquin) Allergy Unknown Verified 04/29/24 10:16 lisinopril AdvReac COUGH Verified 04/29/24 10:16 Family History Unknown Diabetes Unknown Prostate cancer Aunt Colon cancer Uncle Colon cancer Grandfather Colon cancer Surgical History History of prostatectomy Hx of colonoscopy History of tonsillectomy History of cystoscopy Social History household members: spouse current occupational status: employed current occupation: [employer] Smoking Status: Never smoker alcohol intake: current alcohol intake frequency: holidays/special occasions only substance use type: does not use ROS Constitutional Constitutional: Denies fatigue, fever(s), poor appetite, weight gain or weight loss Gastrointestinal Gastrointestinal: Denies belching, bloating, change in bowel habits, change in stool character, chewing difficulty, coffee ground emesis, constipation, cramping, diarrhea, dyspepsia, dysphagia, early satiety, excessive flatus, fecal incontinence, heartburn, hematemesis, hematochezia, hemorrhoids, loose stools, melena, nausea, odynophagia, rectal bleeding, tenesmus, vomiting or weight changes Vital Signs Vital Signs Vital Signs: 08/24/24 06:30 08/24/24 06:30 08/24/24 06:52 Temperature 98.1 F 98.1 F Temperature Source Temporal Pulse Rate 81 81 Respiratory Rate 16 16 Respiratory Pattern Normal Blood Pressure 132/85 H 132/85 H Blood Pressure Mean 100 Blood Pressure Source Monitor Blood Pressure Position Sitting Blood Pressure Location Left Arm Pulse Ox 98 98 Oxygen Delivery Method Room Air Weight Weight: 216 lb 0.848 oz Body Mass Index (BMI) 32.8 Physical Exam Const alert, oriented x3, no apparent distress and healthy appearing General Appearance: cooperative GI normal to inspection, nondistended, normoactive bowel sounds, soft to palpation, non-tender and non-distended Percussion: normal to percussion Rectal Exam: deferred Assessment & Plan Assessment/Plan (1) Encounter for screening for malignant neoplasm of colon: PLAN: He was explained alternatives, risk, benefits include not withstanding bleeding, infection, sepsis, perforation, need for emergent surgery and . He will have an ASA of 3.
--- NOTE | 2024-08-24 07:43 | OP.COLON_ITS ---
Patient Name: Timbo Navarro Procedure Date: 08/24/2024 7:10 AM Date of : 1965 Age: 59 Procedure: Colonoscopy Indications: Screening for colorectal malignant neoplasm Providers: Martin Trivedi DO Medicines: Monitored Anesthesia Care Patient Profile: This is a 59 year old male. Refer to note in patient chart for documentation of history and physical. Last Colonoscopy: more than 10 years ago. Complications: No immediate complications. Procedure: Pre-Anesthesia Assessment: - Prior to the procedure, a History and Physical was performed, and patient medications and allergies were reviewed. The patient is competent. The risks and benefits of the procedure and the sedation options and risks were discussed with the patient. All questions were answered and informed consent was obtained. Patient identification and proposed procedure were verified by the physician in the pre-procedure area. Mental Status Examination: alert and oriented. Airway Examination: normal oropharyngeal airway and neck mobility. Respiratory Examination: clear to auscultation. CV Examination: normal. Prophylactic Antibiotics: The patient does not require prophylactic antibiotics. Prior Anticoagulants: The patient has taken no anticoagulant or antiplatelet agents except for NSAID medication. ASA Grade Assessment: II - A patient with mild systemic disease. After reviewing the risks and benefits, the patient was deemed in satisfactory condition to undergo the procedure. The anesthesia plan was to use monitored anesthesia care (MAC). Immediately prior to administration of medications, the patient was re-assessed for adequacy to receive sedatives. The heart rate, respiratory rate, oxygen saturations, blood pressure, adequacy of pulmonary ventilation, and response to care were monitored throughout the procedure. The physical status of the patient was re-assessed after the procedure. After I obtained informed consent, the scope was passed under direct vision. Throughout the procedure, the patient's blood pressure, pulse, and oxygen saturations were monitored continuously. The colonoscope was introduced through the anus and advanced to the cecum, identified by appendiceal orifice and ileocecal valve. The colonoscopy was performed without difficulty. The patient tolerated the procedure well. The quality of the bowel preparation was adequate. The ileocecal valve, appendiceal orifice, and rectum were photographed. Scope In: 7:21:09 AM Scope Withdrawal Time 0 hours 11 minutes 37 seconds Scope Out: 7:34:45 AM Total Procedure Duration Time 0 hours 13 minutes 36 seconds Findings: The perianal and digital rectal examinations were normal. A 5 mm polyp was found in the splenic flexure. The polyp was sessile. Biopsies were taken with a cold forceps for histology. Verification of patient identification for the specimen was done. Estimated blood loss was minimal. Two sessile polyps were found in the sigmoid colon. The polyps were 1 to 2 mm in size. These polyps were removed with a hot snare. Resection and retrieval were complete. Verification of patient identification for the specimen was done. Estimated blood loss was minimal. Impression: - One 5 mm polyp at the splenic flexure. Biopsied. - Two 1 to 2 mm polyps in the sigmoid colon, removed with a hot snare. Resected and retrieved. Recommendation: - Repeat colonoscopy in 5 years for surveillance. - Continue present medications. Procedure Code(s): --- Professional --- 59830, Colonoscopy, flexible; with removal of tumor(s), polyp(s), or other lesion(s) by snare technique 06722, 59, Colonoscopy, flexible; with biopsy, single or multiple CPT copyright 2021 [employer]. All rights reserved. The codes documented in this report are preliminary and upon spinner hydraulic review may be revised to meet current compliance requirements. Martin Trivedi DO 08/24/2024 7:42:43 AM This report has been signed electronically. Number of Addenda: 0 Note Initiated On: 08/24/2024 7:10 AM
--- NOTE | 2024-08-24 07:43 | OP.CCLET_ITS ---
08/24/2024 Shobha Lynn [address] [place] [address] Re : Colonoscopy procedure for Timbo Navarro Dear Dr. Lynn This procedure was performed on Saturday, August 24, 2024. My impressions and recommendations are as follows: Impressions : - One 5 mm polyp at the splenic flexure. Biopsied. - Two 1 to 2 mm polyps in the sigmoid colon, removed with a hot snare. Resected and retrieved. Recommendations : - Repeat colonoscopy in 5 years for surveillance. - Continue present medications. My findings are described in the full procedure note, which is enclosed. If I can be of further assistance, please feel free to contact me at . Sincerely, Martin Trivedi, 08/24/2024 7:42:43 AM This report has been signed electronically.
--- NOTE | 2024-08-24 07:43 | PCM.POST.ANE ---
Anesthesia: Postop Eval I Current Vital Signs Temperature: 97.3 F Pulse Rate: 71 Blood Pressure: 114/76 Respiratory Rate: 16 Pulse Ox: 97 Oxygen Delivery Method: Room Air Assessment Airway patent: Yes Spontaneous unlabored respirations: Yes Mental status: Asleep nausea: No Vomiting: No Anesthesia Complication: No Fluid Hydration Crystalloid volume administer (ml): 40 Total IV fluid infused: 40 Progress Note Anesthesia document: Postop Eval 1 completed: Yes
--- NOTE | 2024-08-24 09:11 | PCM.POSTANE2 ---
Anesthesia Postop Eval I Sum Postop Eval Completion status Anesthesia document: Postop Eval 1 completed: Yes Anesthesia Postop Eval I Summary Anesthesia Postop Eval I Summary: Anesthesia Postop Eval I: Assessment Summary Airway patent Yes 08/24/24 07:44 [email or web address] Spontaneous unlabored Yes 08/24/24 07:44 [email or web address] respirations Mental status Asleep 08/24/24 07:44 [email or web address] nausea No 08/24/24 07:44 [email or web address] Vomiting No 08/24/24 07:44 [email or web address] Anesthesia Postop Eval I: Fluid Summary Crystalloid volume administer 40 08/24/24 07:44 [email or web address] (ml) Colloids volume administered ( ml) Blood Product volume administered (ml) Total IV fluid infused 40 08/24/24 07:44 [email or web address] Anesthesia Postop Eval I: Summary Notes Anesthesia Complication No 08/24/24 07:44 [email or web address] Anesthesia Complication Comment: Post-operative progress note Anesthesia: Postop Eval II Evaluation Mental status: Awake Pain Level: 0 nausea: No Vomiting: No
[2024-08-24 10:52] LABS: Bedside Glucose 147 mg/dL (74-106)
== END 2024-08-24 08:34 | disposition home or self-care (01) ==
LOC: EN 06:02 → AC 06:03
PROVIDERS: PCP Family Medicine; Referring Provider Family Medicine; Visit Provider Internal Medicine Gastroenterology
PROC: 0DJD8ZZ Inspection of Lower Intestinal Tract, Via Natural or Artificial Opening Endoscopic (ICD-10-PCS; CPT 45378; principal; 2024-08-24 06:55)
DX: Z12.11 Encounter for screening for malignant neoplasm of colon (principal); E11.9 Type 2 diabetes mellitus without complications; Z79.82 Long term (current) use of aspirin; Z79.84 Long term (current) use of oral hypoglycemic drugs; Z80.0 Family history of malignant neoplasm of digestive organs; Z85.46 Personal history of malignant neoplasm of prostate; I10 Essential (primary) hypertension; D75.1 Secondary polycythemia; D12.3 Benign neoplasm of transverse colon; D12.5 Benign neoplasm of sigmoid colon
CPT/HCPCS: 45385; 45380; 82962; 88305; A4216; J2405

== ENCOUNTER → 2024-10-01 | Outpatient (CLI) | payer OTHER, SELFPAY ==
[2024-10-01 14:54] LABS: PSA,Total- Diagnostic < 0.02 ng/mL (0.00-4.00)
== END | disposition home or self-care (01) ==
LOC: LAB 13:06
PROVIDERS: PCP Family Medicine; Referring Provider Nurse Practitioner; Visit Provider Nurse Practitioner
DX: C61 Malignant neoplasm of prostate (principal)
CPT/HCPCS: 36415; 84153

== ENCOUNTER 2024-11-23 06:05 | Day surgery (SDC) | payer OTHER, SELFPAY ==
--- NOTE | 2024-11-19 14:45 | PAT.ANESEVAL ---
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 When Was Last Pacemaker Check QUESTION #4 FULL TEXT: You/Your Family Experience fever (hyperthermia) with Anesthesia Last Oral Intake Last Oral intake: Last Oral Intake NPO since Meds taken in AM with sips of water? 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 Has anyone observed you stop No 11/19/24 11:23 breathing during sleep? STOP Results Negative 11/19/24 11:23 QUESTION #5 FULL TEXT : Do you snore loudly (louder than talking or can be heard through closed doors)? 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 Specify any problems Hx of Preganancy in last 3 N/A 11/19/24 11:23 Months Nurse Filling Out Transfusion [facility] 11/19/24 11:23 & Questions: Date: 11/19/24 11/19/24 11:23 Time: 11:26 11/19/24 11:23 Patient unable to answer at this time (ie. 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 Hx Now Gestational Age (in weeks): EDC: Hx Hx Para Hx Section SAB No 09/18/23 11:15 PFSH Medical History Family hx of colon cancer Loss of hearing Wears glasses Cancer Alcohol use Arthritis Pulmonary embolism Migraine headache Loss of consciousness Dietary restriction Non-smoker Leg cramps Carbon monoxide poisoning Abnormal pathology report from prostate needle biopsy Head injury Elevated PSA Hypertension Diabetes mellitus Bronchitis Home Medications ?Medication ?Instructions ?Recorded ?Last Taken ?Type aspirin 81 mg chewable tablet 162 mg PO BID 10/23/17 09/22/23 History cholecalciferol (vitamin D3) 25 8,000 unit PO DAILY 10/23/17 Unknown History mcg (1,000 unit) capsule loratadine 10 mg tablet 10 mg PO QDAY 10/23/17 Unknown History losartan 50 mg tablet 50 mg PO DAILY 01/24/21 10/02/23 History metformin 500 mg tablet 500 mg PO QHS 01/24/21 Unknown History zinc gluconate 30 mg tablet 50 mg PO DAILY 07/29/23 Unknown History Allergy/AdvReac Type Severity Reaction Status Date / Time Quinolones Allergy Severe Rash Verified 11/19/24 11:20 Sulfa (Sulfonamide Allergy Severe Rash Verified 11/19/24 11:20 Antibiotics) levofloxacin (From Levaquin) Allergy Unknown Verified 11/19/24 11:20 lisinopril AdvReac COUGH Verified 11/19/24 11:20 Family History Unknown Diabetes Unknown Prostate cancer Aunt Colon cancer Uncle Colon cancer Grandfather Colon cancer Surgical History History of prostatectomy Hx of colonoscopy History of tonsillectomy History of cystoscopy Social History household members: spouse current occupational status: employed current occupation: [employer] Smoking Status: Never smoker alcohol intake: current alcohol intake frequency: holidays/special occasions only substance use type: does not use Audit: Pertinent Findings Pertinent Findings EKG Perinent findings: August 12, 2024. Normal sinus rhythm. Left axis deviation. Incomplete right bundle branch block. Inferior infarct, age undetermined. Recommendation Anesthesia Recommendation Anesthesia recommendation: OPTIMIZED for anesthesia
[2024-11-23] VITALS (9 sets, daily range): BP systolic 106–148; BP diastolic 56–87; PULSE 71–86; RESP 14–18; TEMP 36.1–36.7; O2SAT 93–97; BMI 33.9
--- NOTE | 2024-11-23 06:45 | PCM.HP.STD ---
HPI - General General Date of Admission: 11/23/24 Date of Service: 11/23/24 Chief Complaint: Dysphagia and personal history of polyps HPI Narrative ADAM QUINN, is a 59 M who presents ADAM QUINN is a 59 M who presents to the office today for follow up. abd/pelvis CT 08.12.24 Fat containing ventral hernia with mild adjacent fat stranding. Correlate with physical exam to exclude incarceration. Cholelithiasis within a contracted gallbladder. If there is clinical concern for acute cholecystitis, consider ultrasound. Colonoscopy 08.24.24 One 5 mm polyp at the splenic flexure. Biopsied. Two 1 to 2 mm polyps in the sigmoid colon, removed with a hot snare. Resected and retrieved. OV 09.15.24 pt reports that in the past few months he has felt like food is getting caught in his throat. States that it is very sporadic and cannot pinpoint what foods he is having trouble with. Pt reports that many years ago he struggled with HB, but states that he has since made lifestyle changes. Pt is scheduled for an EGD on November 23. [facility] Medical History Family hx of colon cancer Loss of hearing Wears glasses Cancer Alcohol use Arthritis Pulmonary embolism Migraine headache Loss of consciousness Dietary restriction Non-smoker Leg cramps Carbon monoxide poisoning Abnormal pathology report from prostate needle biopsy Head injury Elevated PSA Hypertension Diabetes mellitus Bronchitis Home Medications ?Medication ?Instructions ?Recorded ?Last Taken ?Type aspirin 81 mg chewable tablet 162 mg PO BID 10/23/17 11/20/24 History cholecalciferol (vitamin D3) 25 8,000 unit PO DAILY 10/23/17 11/21/24 History mcg (1,000 unit) capsule loratadine 10 mg tablet 10 mg PO QDAY 10/23/17 11/21/24 History losartan 50 mg tablet 50 mg PO DAILY 01/24/21 11/23/24 History metformin 500 mg tablet 500 mg PO QHS 01/24/21 11/22/24 History zinc gluconate 30 mg tablet 50 mg PO DAILY 07/29/23 11/20/24 History Allergy/AdvReac Type Severity Reaction Status Date / Time Quinolones Allergy Severe Rash Verified 11/23/24 06:33 Sulfa (Sulfonamide Allergy Severe Rash Verified 11/23/24 06:33 Antibiotics) levofloxacin (From Levaquin) Allergy Unknown Verified 11/23/24 06:33 lisinopril AdvReac COUGH Verified 11/23/24 06:33 Family History Unknown Diabetes Unknown Prostate cancer Aunt Colon cancer Uncle Colon cancer Grandfather Colon cancer Surgical History History of prostatectomy Hx of colonoscopy History of tonsillectomy History of cystoscopy Social History household members: spouse current occupational status: employed current occupation: [employer] Smoking Status: Never smoker alcohol intake: current alcohol intake frequency: holidays/special occasions only substance use type: does not use ROS Constitutional Constitutional: Denies fatigue, fever(s), poor appetite, weight gain or weight loss Gastrointestinal Gastrointestinal: Denies belching, bloating, change in bowel habits, change in stool character, chewing difficulty, coffee ground emesis, constipation, cramping, diarrhea, dyspepsia, dysphagia, early satiety, excessive flatus, fecal incontinence, heartburn, hematemesis, hematochezia, hemorrhoids, loose stools, melena, nausea, odynophagia, rectal bleeding, tenesmus, vomiting or weight changes Vital Signs Vital Signs Vital Signs: 11/23/24 06:34 11/23/24 06:34 Temperature 97.1 F L Temperature Source Temporal Pulse Rate 86 Respiratory Rate 18 Respiratory Pattern Normal Blood Pressure 148/87 H Blood Pressure Mean 107 Blood Pressure Source Monitor Blood Pressure Position Semi-Fowlers Blood Pressure Location Left Arm Pulse Ox 97 Oxygen Delivery Method Room Air Weight Weight: 223 lb 1.725 oz Body Mass Index (BMI) 33.9 Physical Exam Const alert, oriented x3, no apparent distress and healthy appearing General Appearance: cooperative GI normal to inspection, nondistended, normoactive bowel sounds, soft to palpation, non-tender and non-distended Percussion: normal to percussion Rectal Exam: deferred Assessment & Plan Assessment/Plan (1) GERD (gastroesophageal reflux disease): (2) High grade dysplasia in colonic adenoma: (3) Encounter for screening for malignant neoplasm of colon: PLAN: He was explained alternatives, risk, benefits include not withstanding bleeding, infection, sepsis, perforation, need for emergent surgery and . He will have an ASA of 3.
--- NOTE | 2024-11-23 06:59 | PRE.ANES_ITS ---
ASA Classification* ASA Classification ASA Classification: 2 Assessment & Plan Anesthesia* Anesthesia Assessment Anesthesia Assessment: Discussed sedation and/or anesthesia options, risks, benefits, and alternatives with patient/parents/legal guardian/POA. Questions invited. The patient/parents/legal guardian/POA seems to understand and agrees to proceed with anesthesia plan. Reviewed the physical assessment, medical history, allergy history and patient home medications list prior to surgery/procedure/anesthetic and documented any changes. Performed airway and anesthesia risk assessments. Anesthesia Type Anesthesia Type: MAC History Source History Obtained from:: Patient and Chart Anesthesia Focused Assessment* Temperature: 97.1 F Pulse Rate: 86 Blood Pressure: 148/87 Respiratory Rate: 18 Pulse Ox: 97 Oxygen Delivery Method: Room Air Airway Assessment Mouth opens: 2 cm Mallampati Score: IV Teeth Condition: Intact Neck Range of motion (ROM): Limited ROM (Slight decrease in extension) Focused Labs Anesthesia Preop lab: CBC WBC 6.0 K/mm3 (4.4-11.0) 08/12/24 19:43 08/12/24 RBC 5.24 M/mm3 (4.6-6.2) 08/12/24 19:43 08/12/24 Hgb 16.5 g/dL (13.0-16.5) 08/12/24 19:43 08/12/24 Hct 46.4 % (40-54) 08/12/24 19:43 08/12/24 Plt Count 209 K/mm3 (150-450) 08/12/24 19:43 08/12/24 CHEMISTRY Potassium 3.8 mmol/L (3.5-5.1) 08/12/24 19:43 08/12/24 Sodium 138 mmol/L (136-145) 08/12/24 19:43 08/12/24 BUN 13 mg/dL (7-18) 08/12/24 19:43 08/12/24 Creatinine 0.91 mg/dL (0.70-1.30) 08/12/24 19:43 08/12/24 Glucose 197 mg/dL (74-106) H 08/12/24 19:43 08/12/24 POC Glucose 147 mg/dL (74-106) H 08/24/24 06:23 08/24/24 TSH 1.71 uIU/mL (0.358-3.74) 05/04/16 11:29 COAG PT 13.7 SECONDS (11.7-14.9) 12/26/20 11:55 Pre-Assessment Diagnosis/Proposed Procedure Planned Operative Procedure(s): EGD, COLONOSCOPY Anesthesia History Anesthesia History - courseware developer: Anesthesia History - courseware developer Hx Hospitalization No 11/19/24 11:23 Any Problems With Anesthesia No 11/19/24 11:23 Cholinesterase deficiency No 11/19/24 11:23 You/Your Family Experience No 11/19/24 11:23 fever (hyperthermia) with Relationship Recent Exposure to Contagious No 11/23/24 06:34 Disease Does patient have nerve No 11/19/24 11:23 stimulator Patient instructed to have device shut off --Does patient have Pacemaker No 11/23/24 06:34 or ICD? When Was Last Pacemaker Check QUESTION #4 FULL TEXT: You/Your Family Experience fever (hyperthermia) with Anesthesia Last Oral Intake Last Oral intake: Last Oral Intake NPO since 03:30 11/23/24 06:34 Meds taken in AM with sips of Yes 11/23/24 06:34 water? Meds patient instructed to take am of surgery Any additional information?: Yes NPO since: 03:30 (Patient finished prep at 3:30 AM.) Meds taken in AM with sips of water?: Yes PONV PONV - courseware developer: PONV - courseware developer Female No 11/19/24 11:23 HX of Motion Sickness No 11/19/24 11:23 HX of N/V After Surgery No 11/19/24 11:23 Non-Smoker Yes 11/19/24 11:23 Duration of Surgery greater No 11/19/24 11:23 than 60 minutes Number of Risk Factors 1 11/19/24 11:23 PONV Score Low Risk 11/19/24 11:23 Height & Weight Height & Weight: Anesthesia: Height & Weight Height 5 ft 8 in 11/23/24 06:34 Weight: 101.2 kg 11/23/24 06:34 Body Mass Index (BMI) 33.9 11/23/24 06:34 Respiratory Assessment Respiratory Assessment - courseware developer: Respiratory Tract Infection Hx - courseware developer Hx Respiratory Tract Infection No 11/19/24 11:23 STOP Sleep Apnea STOP Sleep Apnea - courseware developer: STOP Sleep Apnea - courseware developer Hx Hypertension Yes 11/19/24 11:23 Hx Sleep Apnea No 11/19/24 11:23 CPAP BIPAP Do you snore loudly (louder No 11/19/24 11:23 than talking or can be heard Do you often feel tired/ No 11/19/24 11:23 fatigued/ sleepy during daytime? Has anyone observed you stop No 11/19/24 11:23 breathing during sleep? STOP Results Negative 11/19/24 11:23 QUESTION #5 FULL TEXT : Do you snore loudly (louder than talking or can be heard through closed doors)? Tobacco Use History Tobacco Use History - courseware developer: Tobacco Use History - courseware developer Tobacco Use Smoking Status Never smoker 11/19/24 11:23 Hx Tobacco Use No 11/19/24 11:23 Years Smoking Packs Smoked per Day Smoking Cessation Date was within the last 15 years Hx Smoking Cessation Date Hx Smoking Cessation Counseling Hematologic Medial History Hematologic Hx - courseware developer: Hematologic Medical Hx - rn documentation specialist Hx of Blood Transfusion No 11/19/24 11:23 Hx of Transfusion in last 3 No 11/19/24 11:23 Months Date of Last Transfusion (if within last 3 months) Ever experience any problems No 11/19/24 11:23 with transfusion(s)? Specify any problems Hx of Preganancy in last 3 N/A 11/19/24 11:23 Months Nurse Filling Out Transfusion [facility] 11/19/24 11:23 & Questions: Date: 11/19/24 11/19/24 11:23 Time: 11:26 11/19/24 11:23 Patient unable to answer at this time (ie. confused, unrespo /Reproduction History /Reproductive History - courseware developer: /Reproductive Hx- courseware developer Hx Now Gestational Age (in weeks): EDC: Hx Hx Para Hx Section SAB No 09/18/23 11:15 Active Medications Active Medications: Current Medications Generic Name Dose Route Start Last Admin Trade Name Freq PRN Reason Stop Dose Admin Lactated Ringer's 1,000 mls @ 15 mls/hr 11/23/24 06:45 IV .Q48H NORMA PFSH Medical History Family hx of colon cancer Loss of hearing Wears glasses Cancer Alcohol use Arthritis Pulmonary embolism Migraine headache Loss of consciousness Dietary restriction Non-smoker Leg cramps Carbon monoxide poisoning Abnormal pathology report from prostate needle biopsy Head injury Elevated PSA Hypertension Diabetes mellitus Bronchitis Home Medications ?Medication ?Instructions ?Recorded ?Last Taken ?Type aspirin 81 mg chewable tablet 162 mg PO BID 10/23/17 0 11/20/24 History cholecalciferol (vitamin D3) 25 8,000 unit PO DAILY 11/21/24 History mcg (1,000 unit) capsule loratadine 10 mg tablet 10 mg PO QDAY 10/23/1711/21 History losartan 50 mg tablet 50 mg PO DAILY 01/24/2111/12 History metformin 500 mg tablet 500 mg PO QHS 01/24/2111/22 History zinc gluconate 30 mg tablet 50 mg PO DAILY 07/29/23 History Allergy/AdvReac Type Severity Reaction Status Date / Time Quinolones Allergy Severe Rash Verified 11/23/24 06:33 Sulfa (Sulfonamide Allergy Severe Rash Verified 11/23/24 06:33 Antibiotics) levofloxacin (From Levaquin) Allergy Unknown Verified 11/23/24 06:33 lisinopril AdvReac COUGH Verified 11/23/24 06:33 Family History Unknown Diabetes Unknown Prostate cancer Aunt Colon cancer Uncle Colon cancer Grandfather Colon cancer Surgical History History of prostatectomy Hx of colonoscopy History of tonsillectomy History of cystoscopy Social History household members: spouse current occupational status: employed current occupation: [employer] Smoking Status: Never smoker alcohol intake: current alcohol intake frequency: holidays/special occasions only substance use type: does not use Review of Systems (Anesthesia) ROS Narrative System reviewed and no additional complaints, except as documented.
--- NOTE | 2024-11-23 07:00 | EGD_PTH ---
PATIENT: ADAM QUINN LOC: EN U#:[id number] AGE/SX: 59/M ROOM: RE11/23/[address]: Dr. Martin Trivedi DO : 1965 BED: DIS: 11/23/2024 SPEC #: [id number] RECD: 11/23/24 09:22 STATUS: ANGELICA TENZIN #: [id number] DELVIN: 11/23/24 07:[address]: Martin Trivedi DEPT: SURGICAL PATHOLOGY RECD BY: Bipin Price ENTERED: 11/23/24 09:48 SP TYPE: EGD BIOPSY GONZALES DR: Dr. Shobha Lynn MD Tissues: A - Esophagus, NOS B - Stomach, NOS C - Duodenum, NOS D - Sigmoid colon biopsy E - Sigmoid colon biopsy F - Rectum, NOS Procedures: Immunohistochemical Stains Surgery Specimen Level IV HEADER OPERATION: Colonoscopy, EGD with biopsy PRE-OP DIAGNOSIS: GERD, high grade dysplasia in colonic adenoma, encounter for screening for malignant neoplasm of colon TISSUE SUBMITTED: A- Distal esophagus biopsy, B- Lesser curvature biopsy, C- Duodenum biopsy,D- Sigmoid colon polyp base biopsy, E- Sigmoid colon biopsy, F- Rectal polyp biopsy MICROSCOPIC DIAGNOSIS A. Esophagus, distal, biopsy: * Benign squamous epithelium * Oxyntocardiac type mucosa with mild chronic inflammation, negative for goblet cells B. Stomach, lesser curvature, biopsy: * Oxyntic mucosa with mild chronic focal active inflammation (See note) Note: An immunostain for Helicobacter pylori organisms is in progress and will be reported as an addendum C. Small bowel, duodenum, biopsy: * Benign small bowel mucosa with slight villous atrophy (See note) Note: The findings are non-specific. D. Sigmoid colon, polyp, base, biopsy: * Colonic mucosa with focally dilated crypts and lymphoid aggregate E. Sigmoid colon, biopsy: * Benign colonic mucosa with focally dilated crypts F. Rectum, polyp, biopsy: * Hyperplastic polyp MICROSCOPIC DESCRIPTION Slides are reviewed. GROSS DESCRIPTION A. Received in formalin in a container labeled with the patient's name, date of , and distal esophagus biopsy are 3 blackwell-pink fragments of mucosal tissue each measuring 0.3 x 0.3 x 0.2 cm. Submitted in toto in A1. B. Received in formalin in a container labeled with the patient's name, date of , and lesser curvature biopsy are 3 blackwell-pink fragments of mucosal tissue ranging from 0.3 x 0.3 x 0.2 cm to 0.5 x 0.2 x 0.2 cm. Submitted in toto in B1. C. Received in formalin in a container labeled with the patient's name, date of , and duodenum biopsy are 2 blackwell-pink fragments of mucosal tissue measuring 0.3 x 0.3 x 0.2 cm and 0.4 x 0.3 x 0.3 cm. Submitted in toto in C1. D. Received in formalin in a container labeled with the patient's name, date of , and sigmoid colon polyp base biopsy are 2 blackwell-pink fragments of mucosal tissue each measuring 0.3 x 0.2 x 0.2 cm. Submitted in toto in D1. E. Received in formalin in a container labeled with the patient's name, date of , and sigmoid colon biopsy is a 0.3 x 0.3 x 0.2 cm fragment of blackwell-pink mucosal tissue. Submitted in toto in E1. F. Received in formalin in a container labeled with the patient's name, date of , and rectal polyp biopsy is a 0.3 x 0.3 x 0.3 cm fragment of blackwell-pink mucosal tissue. Submitted in toto in F1. [facility] 11-23-2024 CPT:[id number]
--- NOTE | 2024-11-23 07:48 | PCM.POST.ANE ---
Anesthesia: Postop Eval I Current Vital Signs Temperature: 97 F Pulse Rate: 71 Blood Pressure: 110/56 Respiratory Rate: 16 Pulse Ox: 97 Oxygen Delivery Method: Room Air Assessment Airway patent: Yes Spontaneous unlabored respirations: Yes Mental status: Asleep nausea: No Vomiting: No Anesthesia Complication: No Fluid Hydration Crystalloid volume administer (ml): 500 Total IV fluid infused: 500 Progress Note Anesthesia document: Postop Eval 1 completed: Yes
--- NOTE | 2024-11-23 07:50 | OP.EGD_ITS ---
Patient Name: Timbo Navarro Procedure Date: 11/23/2024 7:07 AM Date of : 1965 Age: 59 Procedure: Upper GI endoscopy Indications: Dysphagia, Esophageal reflux Providers: Martin Trivedi DO Referring MD: Martin Trivedi DO Medicines: Monitored Anesthesia Care Patient Profile: This is a 59 year old male. Refer to note in patient chart for documentation of history and physical. Patient has symptoms of chronic dysphagia and acute heartburn. Complications: No immediate complications. Procedure: Pre-Anesthesia Assessment: - Prior to the procedure, a History and Physical was performed, and patient medications and allergies were reviewed. The patient is competent. The risks and benefits of the procedure and the sedation options and risks were discussed with the patient. All questions were answered and informed consent was obtained. Patient identification and proposed procedure were verified by the physician in the pre-procedure area. Mental Status Examination: alert and oriented. Airway Examination: normal oropharyngeal airway and neck mobility. Respiratory Examination: clear to auscultation. CV Examination: normal. Prophylactic Antibiotics: The patient does not require prophylactic antibiotics. Prior Anticoagulants: The patient has taken no anticoagulant or antiplatelet agents except for NSAID medication. ASA Grade Assessment: II - A patient with mild systemic disease. After reviewing the risks and benefits, the patient was deemed in satisfactory condition to undergo the procedure. The anesthesia plan was to use monitored anesthesia care (MAC). Immediately prior to administration of medications, the patient was re-assessed for adequacy to receive sedatives. The heart rate, respiratory rate, oxygen saturations, blood pressure, adequacy of pulmonary ventilation, and response to care were monitored throughout the procedure. The physical status of the patient was re-assessed after the procedure. After obtaining informed consent, the endoscope was passed under direct vision. Throughout the procedure, the patient's blood pressure, pulse, and oxygen saturations were monitored continuously. The Colonoscope was introduced through the mouth, and advanced to the second part of duodenum. The upper GI endoscopy was accomplished without difficulty. The patient tolerated the procedure well. Scope In: 7:18:59 AM Scope Out: 7:24:49 AM Total Procedure Duration Time 0 hours 5 minutes 50 seconds Findings: LA Grade B (one or more mucosal breaks greater than 5 mm, not extending between the tops of two mucosal folds) esophagitis with no bleeding was found 38 to 41 cm from the incisors. Biopsies were taken with a cold forceps for histology. Verification of patient identification for the specimen was done. Estimated blood loss was minimal. A medium-sized hiatal hernia was present. Patchy mild inflammation characterized by congestion (edema), erythema and friability was found on the lesser curvature of the stomach. Biopsies were taken with a cold forceps for histology. Verification of patient identification for the specimen was done. Estimated blood loss was minimal. Biopsies were taken with a cold forceps for Helicobacter pylori testing. Verification of patient identification for the specimen was done. No biopsies or other specimens were collected for this exam. Estimated blood loss was minimal. Patchy mildly erythematous mucosa without active bleeding and with no stigmata of bleeding was found in the duodenal bulb. Biopsies were taken with a cold forceps for histology. Verification of patient identification for the specimen was done. Estimated blood loss was minimal. Impression: - LA Grade B reflux esophagitis with no bleeding. Biopsied. - Medium-sized hiatal hernia. - Chronic gastritis. Biopsied. No specimens collected. - Erythematous duodenopathy. Biopsied. Recommendation: - Discharge patient to home. - Resume previous diet. - Continue present medications. - Await pathology results. Procedure Code(s): --- Professional --- 52689, Esophagogastroduodenoscopy, flexible, transoral; with biopsy, single or multiple CPT copyright 2021 [employer] [place] [employer]. All rights reserved. The codes documented in this report are preliminary and upon bun machine operator review may be revised to meet current compliance requirements. Martin Trivedi DO 11/23/2024 7:50:21 AM This report has been signed electronically. Number of Addenda: 0 Note Initiated On: 11/23/2024 7:07 AM
--- NOTE | 2024-11-23 07:51 | OP.CCLET_ITS ---
11/23/2024 Shobha Lynn [address] [place] [address] Re : Upper GI endoscopy procedure for Timbo Navarro Dear Dr. Lynn This procedure was performed on Saturday, November 23, 2024. My impressions and recommendations are as follows: Impressions : - LA Grade B reflux esophagitis with no bleeding. Biopsied. - Medium-sized hiatal hernia. - Chronic gastritis. Biopsied. No specimens collected. - Erythematous duodenopathy. Biopsied. Recommendations : - Discharge patient to home. - Resume previous diet. - Continue present medications. - Await pathology results. My findings are described in the full procedure note, which is enclosed. If I can be of further assistance, please feel free to contact me at . Sincerely, Martin Trivedi, 11/23/2024 7:50:21 AM This report has been signed electronically.
--- NOTE | 2024-11-23 07:53 | OP.COLON_ITS ---
Patient Name: Timbo Navarro Procedure Date: 11/23/2024 7:07 AM Date of : 1965 Age: 59 Procedure: Colonoscopy Indications: High risk colon cancer surveillance: Personal history of colonic polyps, Family history of colon cancer in a first-degree relative before age 60 years Providers: Martin Trivedi DO Referring MD: Martin Trivedi DO Medicines: Monitored Anesthesia Care Patient Profile: This is a 59 year old male. Refer to note in patient chart for documentation of history and physical. Last Colonoscopy: within the past year. Complications: No immediate complications. Procedure: Pre-Anesthesia Assessment: - Prior to the procedure, a History and Physical was performed, and patient medications and allergies were reviewed. The patient is competent. The risks and benefits of the procedure and the sedation options and risks were discussed with the patient. All questions were answered and informed consent was obtained. Patient identification and proposed procedure were verified by the physician in the pre-procedure area. Mental Status Examination: alert and oriented. Airway Examination: normal oropharyngeal airway and neck mobility. Respiratory Examination: clear to auscultation. CV Examination: normal. Prophylactic Antibiotics: The patient does not require prophylactic antibiotics. Prior Anticoagulants: The patient has taken no anticoagulant or antiplatelet agents except for NSAID medication. ASA Grade Assessment: II - A patient with mild systemic disease. After reviewing the risks and benefits, the patient was deemed in satisfactory condition to undergo the procedure. The anesthesia plan was to use monitored anesthesia care (MAC). Immediately prior to administration of medications, the patient was re-assessed for adequacy to receive sedatives. The heart rate, respiratory rate, oxygen saturations, blood pressure, adequacy of pulmonary ventilation, and response to care were monitored throughout the procedure. The physical status of the patient was re-assessed after the procedure. After I obtained informed consent, the scope was passed under direct vision. Throughout the procedure, the patient's blood pressure, pulse, and oxygen saturations were monitored continuously. The Colonoscope was introduced through the anus and advanced to the cecum, identified by appendiceal orifice and ileocecal valve. The colonoscopy was performed without difficulty. The patient tolerated the procedure well. The quality of the bowel preparation was adequate. The terminal ileum, ileocecal valve, appendiceal orifice, and rectum were photographed. Scope In: 7:26:30 AM Scope Withdrawal Time 0 hours 10 minutes 28 seconds Scope Out: 7:39:27 AM Total Procedure Duration Time 0 hours 12 minutes 57 seconds Findings: The perianal and digital rectal examinations were normal. A 5 mm post polypectomy scar was found in the rectum and in the sigmoid colon. The scar tissue was healthy in appearance. The exam was otherwise without abnormality on direct and retroflexion views. Impression: - Post-polypectomy scars in the rectum and in the sigmoid colon. - The examination was otherwise normal on direct and retroflexion views. - No specimens collected. Recommendation: - Discharge patient to home. - Resume previous diet. - Continue present medications. - Await pathology results. - Repeat colonoscopy in 3 years for surveillance. Procedure Code(s): --- Professional --- 13588, Colonoscopy, flexible; diagnostic, including collection of specimen(s) by brushing or washing, when performed (separate procedure) CPT copyright 2021 [employer]. All rights reserved. The codes documented in this report are preliminary and upon supervisory it specialist review may be revised to meet current compliance requirements. Martin Trivedi DO 11/23/2024 7:53:00 AM This report has been signed electronically. Number of Addenda: 0 Note Initiated On: 11/23/2024 7:07 AM
--- NOTE | 2024-11-23 07:54 | OP.CCLET_ITS ---
11/23/2024 Shob[address] Lynn [address] [place] [address] Re : Colonoscopy procedure for Timbo Navarro Dear Dr. Lynn This procedure was performed on Saturday, November 23, 2024. My impressions and recommendations are as follows: Impressions : - Post-polypectomy scars in the rectum and in the sigmoid colon. - The examination was otherwise normal on direct and retroflexion views. - No specimens collected. Recommendations : - Discharge patient to home. - Resume previous diet. - Continue present medications. - Await pathology results. - Repeat colonoscopy in 3 years for surveillance. My findings are described in the full procedure note, which is enclosed. If I can be of further assistance, please feel free to contact me at . Sincerely, Martin Trivedi, 11/23/2024 7:53:00 AM This report has been signed electronically.
--- NOTE | 2024-11-23 08:16 | SUR.PHASEII ---
PATIENT INFORMED RN HE CAN WALK OUT WITHOUT ASSISTANCE. ALSO TELLS RN HE IS GOING HOME TO [place]. DISCUSSED RISKS OF DRIVING OR OPERATING HEAVY MACHINERY AFTER ANESTHESIA. ENCOURAGED PATIENT TO CALL STAFF TO WALK WITH HIM TO EXIT TO ENSURE HIS SAFETY TILL HIS RIDE PICKS HIM UP.
[2024-11-23 12:58] LABS: Bedside Glucose 136 mg/dL (74-106)
== END 2024-11-23 08:30 | disposition home or self-care (01) ==
LOC: EN 06:05 → AC 06:07
PROVIDERS: PCP Family Medicine; Referring Provider Internal Medicine Gastroenterology; Visit Provider Internal Medicine Gastroenterology
PROC: 0DJD8ZZ Inspection of Lower Intestinal Tract, Via Natural or Artificial Opening Endoscopic (ICD-10-PCS; CPT 45378; principal; 2024-11-23 06:55)
DX: Z12.11 Encounter for screening for malignant neoplasm of colon (principal); E11.9 Type 2 diabetes mellitus without complications; K44.9 Diaphragmatic hernia without obstruction or gangrene; Z86.0100 Personal history of colon polyps, unspecified; K62.1 Rectal polyp; R13.10 Dysphagia, unspecified; K29.50 Unspecified chronic gastritis without bleeding; Z79.82 Long term (current) use of aspirin; K21.00 Gastro-esophageal reflux disease with esophagitis, without bleeding; Z80.0 Family history of malignant neoplasm of digestive organs; D12.6 Benign neoplasm of colon, unspecified; I10 Essential (primary) hypertension; Z86.711 Personal history of pulmonary embolism
CPT/HCPCS: 45378; 43239; 82962; 88305; J2405

== ENCOUNTER → 2024-12-04 | Outpatient (CLI) | payer OTHER, SELFPAY ==
[2024-12-04 11:31] LABS: Erythrocyte Sedimentation Rate 8 mm/hr (0-20)
[2024-12-04 12:37] LABS: CRP 4.01 mg/L (0.0-3.0)
[2024-12-09 09:08] LABS: Anti-Centromere B Ab <0.2 AI (0.0-0.9); Anti-Chromatin <0.2 AI (0.0-0.9); Anti-Jo <0.2 AI (0.0-0.9); Anti-Scleroderma-70 AB <0.2 AI (0.0-0.9); Anti-dsDNA Ab 1 IU/mL (0-9); Beef <0.10 kU/L (Class 0); Chocolate <0.10 kU/L (Class 0); Codfish <0.10 kU/L (Class 0); Corn <0.10 kU/L (Class 0); Egg, Whole 0.16 kU/L (Class 0/I); Milk (Cow) <0.10 kU/L (Class 0); Mussels <0.10 kU/L (Class 0); Peanut 0.36 kU/L (Class I); Pork <0.10 kU/L (Class 0); RNP Ab <0.2 AI (0.0-0.9); SJOGREN'S Anti-SS-A test < 0.2 AI (0.0-0.9); SJOGREN'S Anti-SS-B test < 0.2 AI (0.0-0.9); Salmon <0.10 kU/L (Class 0); Shrimp <0.10 kU/L (Class 0); Smith Ab <0.2 AI (0.0-0.9); Soybean <0.10 kU/L (Class 0); Tuna <0.10 kU/L (Class 0); Wheat <0.10 kU/L (Class 0)
[2024-12-10 16:09] LABS: Albumin 3.6 g/dL (2.9-4.4); Alpha-1-Globulins 0.2 g/dL (0.0-0.4); Alpha-2-Globulins 0.8 g/dL (0.4-1.0); Cytoplasmic Ab (C-ANCA) <1:20 titer (Neg:<1:20); Deamidated Gliadin IgA 10 units (0-19); Deamidated Gliadin IgG 2 units (0-19); Endomysial Antibody IgA Negative (Negative); Gamma Globulin 1.3 g/dL (0.4-1.8); IMMUNOFIXATION RESULT,S Comment: (.); Immunoglobulin A 456 mg/dL (90-386); Immunoglobulin E 27 IU/mL (6-495); Immunoglobulin G 1089 mg/dL (603-1613); Immunoglobulin M 127 mg/dL (20-172); Perinuclear Ab (P-ANCA) <1:20 titer (Neg:<1:20); t-Transglutaminase IgA <2 U/mL (0-3)
== END | disposition home or self-care (01) ==
LOC: LAB 10:13
PROVIDERS: PCP Family Medicine; Referring Provider Internal Medicine Gastroenterology; Visit Provider Internal Medicine Gastroenterology
DX: R89.7 Abnormal histological findings in specimens from other organs, systems and tissues (principal)
CPT/HCPCS: 36415; 82784; 82785; 83516; 84165; 85652; 86003; 86005; 86037; 86140; 86225; 86235; 86255; 86334

== ENCOUNTER → 2025-03-26 | Outpatient (CLI) | payer OTHER, SELFPAY ==
[2025-03-26 15:20] LABS: PSA,Total- Diagnostic < 0.02 ng/mL (0.00-4.00)
== END | disposition home or self-care (01) ==
LOC: LAB 13:28
PROVIDERS: PCP Family Medicine; Referring Provider Nurse Practitioner; Visit Provider Nurse Practitioner
DX: C61 Malignant neoplasm of prostate (principal)
CPT/HCPCS: 36415; 84153

== ENCOUNTER → 2025-04-22 | Outpatient (CLI) | payer OTHER, SELFPAY ==
[2025-04-22 12:22] LABS: Hematocrit 48.6 % (40-54); Hemoglobin 17.0 g/dL (13.0-16.5); Immature Granulocytes Count 0.010 X10^3/uL (0.0-0.0); Mean Corp Hgb Conc 35.0 g/dL (32-36); Mean Corpuscular Volume 89.3 fL (80-94); Mean Platelet Vol. 10.2 fl (6.2-12.0); NRBC Flagged by Analyzer 0 % (0-5); Platelet Count 204 K/mm3 (150-450); RBC Distribution Width CV 13.0 % (11.6-14.6); RBC Distribution Width SD 42.5 fl (35.1-43.9); Red Blood Count 5.44 M/mm3 (4.6-6.2); White Blood Count 5.4 K/mm3 (4.4-11.0)
[2025-04-22 12:52] LABS: Creatinine, Urine (random) 215.00 mg/dL (39.00-259.00); Microalbumin,Random Urine < 12.0 mg/L (<20 mg/L)
[2025-04-22 19:08] LABS: AST(SGOT) 34 U/L (<=37); Alanine Aminotransfer ALT/SGPT 48 U/L (<=46); Albumin, Serum 4.3 g/dL (3.5-5.0); Alkaline Phosphatase 74 U/L (40-129); Anion Gap 13 (5-15); BUN 15 mg/dL (4-19); BUN/Creat Ratio 15.4 RATIO (10-20); Calcium,Total 9.2 mg/dL (7.6-11.0); Carbon Dioxide 23.6 mmol/L (21.0-32.0); Chloride 102 mmol/L (98-108); Cholesterol 142 mg/dL (<=200); Globulin 3.2 g/dL (2.2-4.2); Glucose 126 mg/dL (70-99); Low Density Lipoprotein Calc. 88 mg/dL; Potassium 4.0 mmol/L (3.3-5.1); Triglycerides 87 mg/dL; Very Low Density Lipoprotein 17 mg/dL (5-40); Vitamin B12 530 pg/mL (180-914); Vitamin D,25 Hydroxy 65.7 ng/mL (30-100); cholesterol:hdl ratio screen 3.87
== END | disposition home or self-care (01) ==
LOC: MFPLAB 09:35
PROVIDERS: PCP Family Medicine; Visit Provider Family Medicine
DX: R53.83 Other fatigue (principal); E11.9 Type 2 diabetes mellitus without complications
CPT/HCPCS: 36415; 80053; 80061; 82043; 82306; 82570; 82607; 83036; 84439; 84443; 85025